=== PATIENT | female | born 1985 | race Caucasian/White ===

== ENCOUNTER 2017-02-04 17:00 | Emergency (ER) | payer BC ==
[~2017-02-04 17:00] MED LIST: CYCL5TAB PO; HYDR-971 PO; NITR100C62 PO
--- NOTE | 2017-02-04 18:03 | RAD ---
CT ABDOMEN PELVIS WO CONTRAST dated 02/04/2017 5:34 PM Indication: Pain, hematuriaHX renal stones, pain right flank X 24 hrs, gross hematuria, UTI. No prior imaging to compare. Comparison: No comparison is available. Technique: Contiguous axial imaging of the abdomen and pelvis performed without the administration of IV or oral contrast. One or more of the following individualized dose reduction techniques were utilized for this examination: 1. Automated exposure control 2. Adjustment of the mA and/or kV according to patient size 3. Use of iterative reconstruction technique Findings: Limited images of lung bases are clear. Heart size within normal limits. No pleural or pericardial effusion. Solid abdominal viscera not well evaluated in the absence of contrast material. No apparent attenuation abnormality of the liver or spleen. Pancreas, adrenal glands unremarkable. The gallbladder surgically absent. There is a 10 mm calcific stone at the right renal pelvis with inflammatory stranding in the perinephric fat. No significant hydronephrosis. No definite calculus of the bilateral ureter. No left renal stone or left hydronephrosis. Unopacified GI tract normal in caliber and contour. No focal bowel wall thickening. No inflammatory stranding in the mesentery. The appendix is not clearly identified. No ascites or lymphadenopathy. Images of pelvis show nondistended urinary bladder. Uterus and adnexa are unremarkable. Suspected 3.2 cm right ovarian cyst. No free pelvic fluid or pelvic lymphadenopathy. Bone windows show no acute finding. Multilevel spondylosis. IMPRESSION: 10 mm calcific stone at the right renal pelvis with mild inflammatory changes in the perinephric fat. No significant hydronephrosis. Small right ovary and cyst. Status post cholecystectomy. Electronically signed by: Xu Mariano MD (02/04/2017 5:59 PM) [facility]
[2017-02-04] MEDS ORDERED: KETOROLAC 30 MG/ML VIAL. ONE (19:21)
[2017-02-04] MEDS ORDERED: KETOROLAC 30 MG/ML VIAL. IM ONE (19:30)
[2017-02-04 20:24] LABS: BACTERIA,URINE FEW /HPF (0-FEW); BILIRUBIN,URINE NEG (NEG); CLARITY,URINE CLOUDY; COLOR,URINE YELLOW; GLUCOSE,URINE NEG (NEG); NITRITE,URINE POS (NEG); RBC,URINE 20-40 /HPF (0-2); UROBILINOGEN,URINE 0.2 mg/dL (0.2 mg/dL); WBC,URINE TNTC /HPF (0-4)
[2017-02-04 20:25] LABS: SQUAMOUS EPITHELIAL CELL,UR FEW /LPF
[2017-02-04 20:46] LABS: CREATININE 0.7 mg/dL (0.6-1.0); GFR 98.3; POTASSIUM 4.2 mmol/L (3.5-5.1)
[2017-02-04 20:54] VITALS: BP 135/83
[2017-02-04] MEDS ORDERED: CEPH-264 PO (21:10)
--- NOTE | 2017-02-04 21:10 | PHYS DOC ---
Past History Past Medical History: Arthritis, Depression, Kidney Stones, Other Past Surgical History: Appendectomy, Cholecystectomy, Tonsillectomy, Tubal ligation, Other Alcohol Use: Occasionally Drug Use: None Adult General Chief Complaint Chief Complaint: FLANK PAIN HPI HPI 31-year-old female with a history of prior kidney stone now complaining of right flank pain gradual onset with dysuria for several days. Patient saw another doctor earlier today and was diagnosed with a UTI. Treatment was initiated with Bactrim. Patient now presents to the emergency department because she think she not have an infection but instead has a kidney stone. No fevers chills sweats or shaking chills. No vomiting or diarrhea. Denies abdominal pain Review of Systems Review of Systems Constitutional: Denies fever or chills [] Eyes: Denies change in visual acuity, redness, or eye pain [] HENT: Denies nasal congestion or sore throat [] Respiratory: Denies cough or shortness of breath [] Cardiovascular: No additional information not addressed in HPI [] GI: Denies abdominal pain, nausea, vomiting, bloody stools or diarrhea [] : Denies dysuria or hematuria [] Musculoskeletal: Denies back pain or joint pain [] Integument: Denies rash or skin lesions [] Neurologic: Denies headache, focal weakness or sensory changes [] Endocrine: Denies polyuria or polydipsia [] All other systems were reviewed and found to be within normal limits, except as documented in this note. Current Medications Current Medications Current Medications Medications (Trade) Dose Ordered Sig/Rodriguez Start Time Stop Time Status Last Admin Dose Admin Ketorolac Tromethamine (Toradol) 30 mg STK-MED ONCE 02/04/17 19:21 02/04/17 19:22 DC Allergies Allergies Allergies Coded Allergies Type Severity Reaction Last Updated Verified No Known Drug Allergies 05/05/16 No Physical Exam Physical Exam Well Appearing patient no acute distress. Minimal right CVA tenderness. Benign abdomen and pelvis. No clinical fever. Vital signs unremarkable Constitutional: Well developed, well nourished, no acute distress, non-toxic appearance. [] HENT: Normocephalic, atraumatic, bilateral external ears normal, oropharynx moist, no oral exudates, nose normal. [] Eyes: PERRLA, EOMI, conjunctiva normal, no discharge. [] Neck: Normal range of motion, no tenderness, supple, no stridor. [] Cardiovascular:Heart rate regular rhythm, no murmur [] Lungs & Thorax: Bilateral breath sounds clear to auscultation [] Abdomen: Bowel sounds normal, soft, no tenderness, no masses, no pulsatile masses. [] Skin: Warm, dry, no erythema, no rash. [] Back: Right CVAT as above Extremities: No tenderness, no cyanosis, no clubbing, ROM intact, no edema. [] Neurologic: Alert and oriented X 3, normal motor function, normal sensory function, no focal deficits noted. [] Psychologic: Affect normal, judgement normal, mood normal. [] Current Patient Data Vital Signs Vital Signs Date Time Temp Pulse Resp B/P (MAP) Pulse Ox O2 Delivery O2 Flow Rate FiO2 02/04/17 20:54 98.5 76 20 135/83 (100) 99 02/04/17 17:00 Room Air Lab Results Laboratory Tests Test 02/04/17 18:45 02/04/17 19:46 Sodium Level 139 mmol/L (136-145) Potassium Level 4.2 mmol/L (3.5-5.1) Chloride Level 103 mmol/L (98-107) Carbon Dioxide Level 27 mmol/L (21-32) Anion Gap 9 (6-14) Blood Urea Nitrogen 14 mg/dL (7-20) Creatinine 0.7 mg/dL (0.6-1.0) Estimated GFR (Cockcroft-Gault) 98.3 Glucose Level 95 mg/dL (70-99) Calcium Level 9.0 mg/dL (8.5-10.1) Urine Collection Type U cath Urine Color Yellow Urine Clarity Cloudy Urine pH 5.5 Urine Specific Central >=1.030 Urine Protein >100 mg/dl (NEG-TRACE) Urine Glucose (UA) Neg mg/dL (NEG) Urine Ketones (Stick) Neg mg/dL (NEG) Urine Blood Large (NEG) Urine Nitrite Pos (NEG) Urine Bilirubin Neg (NEG) Urine Urobilinogen Dipstick 0.2 mg/dL (0.2 mg/dL) Urine Leukocyte Esterase Mod (NEG) Urine RBC 20-40 /HPF (0-2) Urine WBC Tntc /HPF (0-4) Urine Squamous Epithelial Cells Few /LPF Urine Bacteria Few /HPF (0-FEW) Urine Mucus Mod /LPF EKG EKG [] Radiology/Procedures Radiology/Procedures [] Course & Med Decision Making Course & Med Decision Making Pertinent Labs and Imaging studies reviewed. (See chart for details) Signs and symptoms consistent with pyelonephritis confirmed by straight catheter UA. Initial UA was contaminated. Straight catheter sample clearly consistent with infection. CT with 10 mm stone in the right renal pelvis but no evidence of obstruction with no hydro-. Perinephric stranding consistent with pyelonephritis. Patient has benign appearance and clinical presentation. She appears to be very comfortable during her ED visit however she's made many request for narcotics. Given resistance to patient's initial prescription of Bactrim, Rocephin given IM and Keflex dispensed. Patient aware to follow up with primary care doctor for reevaluation and referral to urology to discuss her renal pelvis stone. She is weren't critical importance to return immediately or go to the nurse emergency department if she has worsening signs of systemic illness. No further workup or treatment indicated this time patient agrees with outpatient follow-up and strict return precautions given [] Dragon Disclaimer Dragon Disclaimer This electronic medical record was generated, in whole or in part, using a voice recognition dictation system. Departure Departure: Impression: Primary Impression: Pyelonephritis Additional Impression: Renal lithiasis Disposition: HOME, SELF-CARE Condition: GOOD Referrals: ROBERT PAPPAS MD (PCP) Patient Instructions: Kidney Stones, Pyelonephritis, Adult Additional Instructions: Your urinalysis results right flank pain and CAT scan suggest that you have a kidney infection which is called pyelonephritis. You do have a 10 mm stone in the collecting system of your right kidney however it does not appear to be causing an obstruction. Finish antibiotics as prescribed. Take Pyridium as prescribed 3 times a day for 6 doses. Pyridium will help with your discomfort with urination. Drink plenty of fluids and follow-up with your doctor in 1-2 days for reevaluation and referral to urology to discuss and arrange treatment of your right kidney stone as needed. Return immediately for fevers and for any signs of worsening illness Scripts Phenazopyridine Hcl (PYRIDIUM) 200 Mg Tablet 200 MG PO TID for 2 Days, #6 TAB Prov: RAYMOND GOODRICH MD 02/04/17 Cephalexin (KEFLEX) 500 Mg Capsule 500 MG PO QID for 14 Days, #56 CAP Prov: RAYMOND GOODRICH MD 02/04/17 Problem Qualifiers RAYMOND GOORDICH MD Feb 04, 2017 21:10
[2017-02-04] MEDS ORDERED: PHEN-318 PO (21:13)
[2017-02-04] MEDS ORDERED: cefTRIAXone IM 1 GM VIAL IM ONE (21:15)
[2017-02-04] MEDS ORDERED: HYDROcodone/APAP 5/325MG 1 TAB TABLET PO ONE (21:15)
== END 2017-02-04 21:30 | disposition home or self-care (01) ==
LOC: ER 17:00
DX: N12 Tubulo-interstitial nephritis, not specified as acute or chronic (principal); N20.0 Calculus of kidney; Z87.442 Personal history of urinary calculi; M19.90 Unspecified osteoarthritis, unspecified site; Z90.49 Acquired absence of other specified parts of digestive tract; Z98.51 Tubal ligation status
CPT/HCPCS: 36415; 74176; 80048; 81001; 87086; 96372; 99285; J0696; J1885

== ENCOUNTER 2018-03-28 17:33 | Emergency (ER) | payer BC ==
[~2018-03-28] VITALS: Ht 182.9 cm; Wt 104.3 kg
[~2018-03-28 17:33] MED LIST changes: +CEPH-264 PO; +HYDR-3165 PO; -HYDR-971 PO; +PHEN-318 PO
[2018-03-28 17:45] VITALS: BP 159/111
[2018-03-28] MEDS ORDERED: ORPHENADRINE CITRATE 60 MG/2 ML VIAL. ONE (17:55)
[2018-03-28] MEDS ORDERED: KETOROLAC 60 MG/2 ML VIAL. IM ONE ×2 (17:55→18:00)
[2018-03-28] MEDS ORDERED: CYCL-331 PO (17:57)
[2018-03-28] MEDS ORDERED: NAPR-683 PO (17:57)
[2018-03-28] MEDS ORDERED: HYDR-3165 PO (17:57)
--- NOTE | 2018-03-28 17:57 | PHYS DOC ---
Past History Past Medical History: Arthritis, Depression, Kidney Stones, Other Past Surgical History: Appendectomy, Cholecystectomy, Tonsillectomy, Tubal ligation, Other Alcohol Use: Occasionally Drug Use: None Adult General Chief Complaint Chief Complaint: BACK PAIN OR INJURY HPI HPI Patient is a 32 year old female who presents with complaining of back pain. Patient states she had deep massage for the first time 2 days ago and since yesterday had pain in thoracic and lumbar and sacral area as a constant pain that getting worse with movement. Patient denies focal neuro deficit, fever and chills, urinary and bowel incontinence, history of the same pain. She rated her pain 10 over 10. Review of Systems Review of Systems Constitutional: Denies fever or chills [] Eyes: Denies change in visual acuity, redness, or eye pain [] HENT: Denies nasal congestion or sore throat [] Respiratory: Denies cough or shortness of breath [] Cardiovascular: No additional information not addressed in HPI [] GI: Denies abdominal pain, nausea, vomiting, bloody stools or diarrhea [] : Denies dysuria or hematuria [] Musculoskeletal: Reports back pain[] Integument: Denies rash or skin lesions [] Neurologic: Denies headache, focal weakness or sensory changes [] Endocrine: Denies polyuria or polydipsia [] All other systems were reviewed and found to be within normal limits, except as documented in this note. Current Medications Current Medications Current Medications Medications (Trade) Dose Ordered Sig/Rodriguez Start Time Stop Time Status Last Admin Dose Admin Ketorolac Tromethamine (Toradol Im) 60 mg 1X ONCE 03/28/18 18:00 03/28/18 18:01 UNV Orphenadrine Citrate (Norflex) 60 mg 1X ONCE 03/28/18 18:00 03/28/18 18:01 UNV Allergies Allergies Allergies Coded Allergies Type Severity Reaction Last Updated Verified No Known Drug Allergies 05/05/16 No Physical Exam Physical Exam Constitutional: Well developed, well nourished, mild distress, non-toxic appearance, height 5 '11'', weight 230 lb. [] HENT: Normocephalic, atraumatic. Eyes: PERRLA, EOMI, conjunctiva normal, no discharge. [] Neck: Normal range of motion, no tenderness, supple, no stridor. [] Cardiovascular:Heart rate regular rhythm, no murmur [] Lungs & Thorax: Bilateral breath sounds clear to auscultation [] Abdomen: Bowel sounds normal, soft, no tenderness, no masses, no pulsatile masses. [] Skin: Warm, dry, no erythema, no rash. [] Back: No midline tenderness, painful range of motion, muscle tenderness without ecchymosis or contusion. Extremities: No tenderness, no cyanosis, no clubbing, ROM intact, no edema. [] Neurologic: Alert and oriented X 3, normal motor function, normal sensory function, no focal deficits noted. [] Psychologic: Affect normal, judgement normal, mood normal. [] Current Patient Data Vital Signs Vital Signs Date Time Temp Pulse Resp B/P (MAP) Pulse Ox O2 Delivery O2 Flow Rate FiO2 03/28/18 17:45 Room Air 03/28/18 17:45 98.5 87 20 100 EKG EKG [] Radiology/Procedures Radiology/Procedures [] Course & Med Decision Making Course & Med Decision Making discharge: I've spoken with the patient and/or caregivers. I've explained the patient's condition, diagnosis and treatment plan based on information available to me at this time. I've answered the patient's and/or caregivers questions and addressed any concerns. The patient and/or caregivers have a good understanding the patient's diagnosis, condition and treatment plan as can be expected at this point. Vital signs have been stabilized. The patient's condition is stable for discharge from the emergency department. The patient will pursue further outpatient evaluation with her primary care provider or other designated consulting physician as outlined in the discharge instructions. Patient and/or caregivers are agreeable to this plan of care and follow-up instructions have been explained in detail. The patient and/or caregivers have received these instructions in written format and expressed understanding of these discharge instructions. The patient and her caregivers are aware that if any significant change in condition or worsening of symptoms should prompt him to immediately return to this of the closest emergency department. If an emergent department is not readily available I would encourage him to call 911. [] Dragon Disclaimer Dragon Disclaimer This electronic medical record was generated, in whole or in part, using a voice recognition dictation system. Departure Departure: Impression: Primary Impression: Musculoskeletal strain Disposition: HOME, SELF-CARE (at 1800) Condition: IMPROVED Referrals: ROBERT PAPPAS MD (PCP) Patient Instructions: Muscle Strain Additional Instructions: Apply ice on your back Drink plenty of liquids Follow-up with your primary care physician in 3-5 days Return to ER if not getting better Scripts Hydrocodone Bit/Acetaminophen (NORCO 5-325 TABLET) 1 Each Tablet 1 TAB PO PRN Q6HRS PRN for PAIN, #10 TAB 0 Refills Prov: DAREN MCMILLAN MD 03/28/18 Naproxen (NAPROSYN) 500 Mg Tablet 500 MG PO BID for pain, #20 TAB Prov: DAREN MCMILLAN MD 03/28/18 Cyclobenzaprine Hcl (CYCLOBENZAPRINE HCL) 10 Mg Tablet 1 TAB PO TID for pain, #30 TAB Prov: DAREN MCMILLAN MD 03/28/18 DAREN MCMILLAN MD Mar 28, 2018 17:57
[2018-03-28] MEDS ORDERED: ORPHENADRINE CITRATE 60 MG/2 ML VIAL. IM ONE (18:00)
== END 2018-03-28 18:10 | disposition home or self-care (01) ==
LOC: ER 17:33
DX: S39.012A Strain of muscle, fascia and tendon of lower back, initial encounter (principal); S29.012A Strain of muscle and tendon of back wall of thorax, initial encounter; F41.9 Anxiety disorder, unspecified; F32.9 Major depressive disorder, single episode, unspecified; Z87.442 Personal history of urinary calculi; Z90.49 Acquired absence of other specified parts of digestive tract; Z90.89 Acquired absence of other organs; Z98.51 Tubal ligation status; X58.XXXA Exposure to other specified factors, initial encounter; Y93.89 Activity, other specified; Y92.89 Other specified places as the place of occurrence of the external cause; Y99.8 Other external cause status
CPT/HCPCS: 96372; 99283; J1885; J2360

== ENCOUNTER 2018-05-09 11:01 | Emergency (ER) | payer BC ==
[~2018-05-09] VITALS: Ht 182.9 cm; Wt 122.1 kg
[~2018-05-09 11:01] MED LIST changes: +CYCL-331 PO; +NAPR-683 PO
[2018-05-09 11:11] VITALS: BP 112/52
[2018-05-09] MEDS ORDERED: MECLIZINE 12.5 MG TABLET. PO PRN (11:30)
[2018-05-09] MEDS ORDERED: IV NORMAL SALINE 1,000ML 1,000 ML IV ONE (11:30)
[2018-05-09 11:35] LABS: BASO # 0.1 x10^3/uL (0.0-0.2); BASO % 1 % (0-3); EOS # 0.3 x10^3/uL (0.0-0.7); EOS % 4 % (0-3); HEMATOCRIT 37.7 % (36.0-47.0); HEMOGLOBIN 12.6 g/dL (12.0-15.5); LYMPH # 2.5 x10^3/uL (1.0-4.8); LYMPH % 31 % (24-48); MEAN CORPUSCULAR HEMOGLOBIN 31 pg (25-35); MEAN CORPUSCULAR HGB CONC 34 g/dL (31-37); MEAN CORPUSCULAR VOLUME 93 fL (79-100); MONO # 0.6 x10^3/uL (0.0-1.1); MONO % 7 % (0-9); NEUT # 4.5 x10^3uL (1.8-7.7); NEUT % 56 % (31-73); PLATELET COUNT 309 x10^3/uL (140-400); RED BLOOD COUNT 4.05 x10^6/uL (3.50-5.40); RED CELL DISTRIBUTION WIDTH 12.9 % (11.5-14.5)
--- NOTE | 2018-05-09 11:49 | RAD ---
CT HEAD INDICATION: dizziness x 1 day, lmp -2018, pt shielded, hx of taking diet pills for weight loss COMPARISON: None Available. Exposure: One or more of the following individualized dose reduction techniques were utilized for this examination: 1. Automated exposure control 2. Adjustment of the mA and/or kV according to patient size 3. Use of iterative reconstruction technique TECHNIQUE: 5 mm contiguous axial images were obtained from the skull base to the vertex in both bone and soft tissue algorithm. FINDINGS: No abnormal attenuation within the brain parenchyma. No evidence of acute intracranial hemorrhage. No extra-axial fluid collections. No mass effect or midline shift. Ventricular size is appropriate. Basal cisterns are patent. No fractures identified.Pappas-white differentiation is preserved.Globes and orbits are within normal limits. Mild mucosal thickening bilateral maxillary and sphenoid sinus. IMPRESSION: 1. No acute intracranial findings. 2. Sinus disease. Electronically signed by: Isaias Still MD (05/09/2018 11:46 AM) [facility]
[2018-05-09 11:50] LABS: ALBUMIN 3.9 g/dL (3.4-5.0); ALBUMIN/GLOBULIN RATIO 1.3 (1.0-1.7); CALCIUM 8.6 mg/dL (8.5-10.1); CREATININE 0.8 mg/dL (0.6-1.0); GFR 83.7; MAGNESIUM 1.9 mg/dL (1.8-2.4); POTASSIUM 3.9 mmol/L (3.5-5.1); TOTAL BILIRUBIN 0.3 mg/dL (0.2-1.0); TOTAL PROTEIN 6.9 g/dL (6.4-8.2)
--- NOTE | 2018-05-09 11:57 | RAD ---
Chest, PA and Lateral: Technique: PA and lateral views of the chest were obtained. History: Chest pain. Comparison: None. Findings: The heart and pulmonary vasculature appear within normal limits. The lungs are clear. The pleural margins are clear. Impression: No acute chest process is seen. Electronically signed by: Isaias Still MD (05/09/2018 11:54 AM) [facility]
--- NOTE | 2018-05-09 12:25 | PHYS DOC ---
Past History Past Medical History: Hypothyroid Past Surgical History: Appendectomy, Cholecystectomy, Tonsillectomy, Tubal ligation, Other Alcohol Use: None Drug Use: None Adult General Chief Complaint Chief Complaint: DIZZY/LIGHT HEADED HPI HPI Patient is a 32 year old female who presents with complaining of dizziness. Patient states she start to exercise at 5 AM and was on treadmill about 40-50 minutes. Patient states he was on her bed and jumped from her bed to close the door and felt dizzy and lightheadedness with tinnitus and almost had near syncope because of dizziness. Patient denies focal neuro deficit, is pain, palpitation, nausea vomiting, blurred vision. Patient states her dizziness did not resolve with rest. Patient currently taking diet medication. Review of Systems Review of Systems Constitutional: Denies fever or chills [] Eyes: Denies change in visual acuity, redness, or eye pain [] HENT: Denies nasal congestion or sore throat [] Respiratory: Denies cough or shortness of breath [] Cardiovascular: No additional information not addressed in HPI [] GI: Denies abdominal pain, nausea, vomiting, bloody stools or diarrhea [] : Denies dysuria or hematuria [] Musculoskeletal: Denies back pain or joint pain [] Integument: Denies rash or skin lesions [] Neurologic: Denies headache, focal weakness or sensory changes , reports dizziness[] Endocrine: Denies polyuria or polydipsia [] All other systems were reviewed and found to be within normal limits, except as documented in this note. Current Medications Current Medications Current Medications Medications (Trade) Dose Ordered Sig/Rodriguez Start Time Stop Time Status Last Admin Dose Admin Meclizine HCl (Antivert) 25 mg PRN Q6HRS PRN 05/09/18 11:30 05/09/18 11:42 25 MG Sodium Chloride 1,000 ml @ 1,000 mls/hr 1X ONCE 05/09/18 11:30 05/09/18 12:29 05/09/18 11:42 1,000 MLS/HR Allergies Allergies Allergies Coded Allergies Type Severity Reaction Last Updated Verified No Known Drug Allergies 05/09/18 No Physical Exam Physical Exam Constitutional: Well developed, well nourished, mild acute distress, non-toxic appearance. [] HENT: Normocephalic, atraumatic, bilateral external ears normal, oropharynx moist, no oral exudates, nose normal. [] Eyes: PERRLA, EOMI, conjunctiva normal, no discharge. [] Neck: Normal range of motion, no tenderness, supple, no stridor. [] Cardiovascular:Heart rate regular rhythm, no murmur [] Lungs & Thorax: Bilateral breath sounds clear to auscultation [] Abdomen: Bowel sounds normal, soft, no tenderness, no masses, no pulsatile masses. [] Skin: Warm, dry, no erythema, no rash. [] Back: No tenderness, no CVA tenderness. [] Extremities: No tenderness, no cyanosis, no clubbing, ROM intact, no edema. [] Neurologic: Alert and oriented X 3, normal motor function, normal sensory function, no focal deficits noted. [] Psychologic: Affect normal, judgement normal, mood normal. [] Current Patient Data Vital Signs Vital Signs Date Time Temp Pulse Resp B/P (MAP) Pulse Ox O2 Delivery O2 Flow Rate FiO2 05/09/18 11:11 97.9 79 22 98 Room Air Lab Results Laboratory Tests Test 05/09/18 11:18 05/09/18 11:21 White Blood Count 8.0 x10^3/uL (4.0-11.0) Red Blood Count 4.05 x10^6/uL (3.50-5.40) Hemoglobin 12.6 g/dL (12.0-15.5) Hematocrit 37.7 % (36.0-47.0) Mean Corpuscular Volume 93 fL (79-100) Mean Corpuscular Hemoglobin 31 pg (25-35) Mean Corpuscular Hemoglobin Concent 34 g/dL (31-37) Red Cell Distribution Width 12.9 % (11.5-14.5) Platelet Count 309 x10^3/uL (140-400) Neutrophils (%) (Auto) 56 % (31-73) Lymphocytes (%) (Auto) 31 % (24-48) Monocytes (%) (Auto) 7 % (0-9) Eosinophils (%) (Auto) 4 % (0-3) H Basophils (%) (Auto) 1 % (0-3) Neutrophils # (Auto) 4.5 x10^3uL (1.8-7.7) Lymphocytes # (Auto) 2.5 x10^3/uL (1.0-4.8) Monocytes # (Auto) 0.6 x10^3/uL (0.0-1.1) Eosinophils # (Auto) 0.3 x10^3/uL (0.0-0.7) Basophils # (Auto) 0.1 x10^3/uL (0.0-0.2) Sodium Level 141 mmol/L (136-145) Potassium Level 3.9 mmol/L (3.5-5.1) Chloride Level 105 mmol/L (98-107) Carbon Dioxide Level 26 mmol/L (21-32) Anion Gap 10 (6-14) Blood Urea Nitrogen 14 mg/dL (7-20) Creatinine 0.8 mg/dL (0.6-1.0) Estimated GFR (Cockcroft-Gault) 83.7 BUN/Creatinine Ratio 18 (6-20) Glucose Level 91 mg/dL (70-99) Calcium Level 8.6 mg/dL (8.5-10.1) Magnesium Level 1.9 mg/dL (1.8-2.4) Total Bilirubin 0.3 mg/dL (0.2-1.0) Aspartate Amino Transferase (AST) 14 U/L (15-37) L Alanine Aminotransferase (ALT) 25 U/L (14-59) Alkaline Phosphatase 55 U/L (46-116) Troponin I Quantitative < 0.017 ng/mL (0-0.055) Total Protein 6.9 g/dL (6.4-8.2) Albumin 3.9 g/dL (3.4-5.0) Albumin/Globulin Ratio 1.3 (1.0-1.7) Lipase 173 U/L (73-393) Glucose (Fingerstick) 89 mg/dL (70-99) EKG EKG G interpreted by me. EKG at 1150 showed normal sinus rhythm at rate of 75, normal IA and QT intervals. No acute ST and T-wave abnormalities. Radiology/Procedures Radiology/Procedures [address] [address] IMAGING REPORT Signed PATIENT: DEYA BARAHONA ACCOUNT: [id number] : 1985 LOCATION: ER AGE: 32 SEX: F EXAM STATUS: REG ER ORD. PHYSICIAN: DAREN MCMILLAN MD REASON: dizziness PROCEDURE: CHEST PA & LATERAL Chest, PA and Lateral: Technique: PA and lateral views of the chest were obtained. History: Chest pain. Comparison: None. Findings: The heart and pulmonary vasculature appear within normal limits. The lungs are clear. The pleural margins are clear. Impression: No acute chest process is seen. Electronically signed by: Isaias Still MD (05/09/2018 11:54 AM) [facility] DICTATED AND SIGNED BY: ISAIAS STILL MD DATE: 05/09/18 2935 CC: DAREN MCMILLAN MD; ROBERT PAPPAS MD ~ [place] [address] IMAGING REPORT Signed PATIENT: DEYA BARAHONA ACCOUNT: [id number] : 1985 LOCATION: ER AGE: 32 SEX: F EXAM STATUS: REG ER ORD. PHYSICIAN: DAREN MCMILLAN MD REASON: dizziness PROCEDURE: CT HEAD WO CONTRAST CT HEAD INDICATION: dizziness x 1 day, lmp , pt shielded, hx of taking diet pills for weight loss COMPARISON: None Available. Exposure: One or more of the following individualized dose reduction techniques were utilized for this examination: 1. Automated exposure control 2. Adjustment of the mA and/or kV according to patient size 3. Use of iterative reconstruction technique TECHNIQUE: 5 mm contiguous axial images were obtained from the skull base to the vertex in both bone and soft tissue algorithm. FINDINGS: No abnormal attenuation within the brain parenchyma. No evidence of acute intracranial hemorrhage. No extra-axial fluid collections. No mass effect or midline shift. Ventricular size is appropriate. Basal cisterns are patent. No fractures identified.Pappas-white differentiation is preserved.Globes and orbits are within normal limits. Mild mucosal thickening bilateral maxillary and sphenoid sinus. IMPRESSION: 1. No acute intracranial findings. 2. Sinus disease. Electronically signed by: Isaias Still MD (05/09/2018 11:46 AM) [facility] DICTATED AND SIGNED BY: ISAIAS STILL MD DATE: 05/09/18 1145 CC: DAREN MCMILLAN MD; ROBERT PAPPAS MD ~ Course & Med Decision Making Course & Med Decision Making Pertinent Labs and Imaging studies reviewed. (See chart for details) Evaluation of patient in ER showed 32-year-old female patient with complaining of sudden onset of dizziness after suddenly got out of the bed. Patient had unremarkable physical exam and treated with IV fluid and meclizine with improvement of her condition. Plan to discharge patient home with diagnose of dizziness and marked dehydration and instruction to increase fluid intake. Dragon Disclaimer Dragon Disclaimer This electronic medical record was generated, in whole or in part, using a voice recognition dictation system. Departure Departure: Impression: Primary Impression: Dizziness Additional Impression: Dehydration Disposition: 01 HOME, SELF-CARE (at 1256) Condition: IMPROVED Referrals: ROBERT PAPPAS MD (PCP) Patient Instructions: Dehydration, Adult, Dizziness Additional Instructions: Drink plenty of liquids Follow-up with your primary care physician in 3-5 days Return to ER if not getting better Scripts Meclizine Hcl (MECLIZINE HCL) 25 Mg Tablet 1 TAB PO PRN TID for dizziness, #30 TAB Prov: DAREN MCMILLAN MD 05/09/18 Problem Qualifiers DAREN MCMILLAN MD May 09, 2018 12:25
[2018-05-09 12:32] LABS: BILIRUBIN,URINE NEG (NEG); CLARITY,URINE CLOUDY; COLOR,URINE YELLOW; GLUCOSE,URINE NEG (NEG)
[2018-05-09 12:33] LABS: BACTERIA,URINE FEW /HPF (0-FEW); NITRITE,URINE NEG (NEG); RBC,URINE OCC /HPF (0-2); SQUAMOUS EPITHELIAL CELL,UR MANY /LPF; UROBILINOGEN,URINE 0.2 mg/dL (0.2 mg/dL)
[2018-05-09 12:43] LABS: AMPHETAMINE/METHAMPHETAMINE NEG (NEG); BARBITURATES NEG (NEG); BENZODIAZEPINES NEG (NEG); CANNABINOIDS NEG (NEG); COCAINE NEG (NEG); METHADONE NEG (NEG); OPIATES NEG (NEG); PHENCYCLIDINE NEG (NEG)
[2018-05-09] MEDS ORDERED: MECL25TA3 PO (12:57)
--- NOTE | 2018-05-09 18:08 | EKG ---
[address] [address] Test Date: 2018-05-09 Test Time: 11:15:07 Pat Name: DEYA BARAHONA Department: Room: Gender: F Direct Sales Consultant: JADEN : 1985 Requested By: DAREN MCMILLAN Order Number: [id number] Reading MD: Jose Son Measurements Intervals [place] Rate: 75 P: 56 GA: 146 QRS: 54 QRSD: 100 T: 56 QT: 408 QTc: 458 Interpretive Statements SINUS RHYTHM Electronically Signed On 05-13-2018 8:54:05 MICROFILMER by Jose Son
== END 2018-05-09 13:15 | disposition home or self-care (01) ==
LOC: ER 11:01
DX: E86.0 Dehydration (principal); R42 Dizziness and giddiness; E03.9 Hypothyroidism, unspecified
CPT/HCPCS: 36415; 70450; 71046; 80053; 80307; 81001; 82947; 83690; 83735; 84484; 85025; 93005; 96360; 99284; J8597; J7030

== ENCOUNTER 2018-07-20 20:03 | Emergency (ER) | payer BC ==
[~2018-07-20] VITALS: Ht 182.9 cm; Wt 108.9 kg
[~2018-07-20 20:03] MED LIST changes: +MECL25TA3 PO
--- NOTE | 2018-07-20 20:08 | ED.ADGEN ---
Past History Past Medical History: Hypothyroid Past Surgical History: Appendectomy, Cholecystectomy, Tonsillectomy, Tubal ligation, Other Alcohol Use: None Drug Use: None Adult General Chief Complaint Chief Complaint "..I fell in the garage yesterday morning... and like hit everything.. but my Lt elbow and shoulder or upper arm still really hurts..." HPI HPI Patient is a 33 year old female who presents with above hx and complaints Lt arm elbow and shoulder injury, bilateral knees and Lt. hip. Pt. has bilateral knee and Lt hip contusions and deep abrasion. Patient states she just tripped. There was no dysrhythmia or loss of consciousness. Patient distal neurovascular intact. Is able to do straight leg lifts and exam. Ambulatory Without problem. Patient's left arm however has marked tenderness of the elbow humerus and left shoulder. Patient has giveaway weakness when held at 90 . Patient does have sensation in deltoid area. She is right-hand dominant. No history immunosuppression. Review of Systems Review of Systems Constitutional: Denies fever or chills [] Eyes: Denies change in visual acuity, redness, or eye pain [] HENT: Denies nasal congestion or sore throat [] Respiratory: Denies cough or shortness of breath [] Cardiovascular: No additional information not addressed in HPI [] GI: Denies abdominal pain, nausea, vomiting, bloody stools or diarrhea [] : Denies dysuria or hematuria [] Musculoskeletal: Plaints of multiple contusions and joint pain [] Integument: Denies rash or skin lesions [] Neurologic: Denies headache, focal weakness or sensory changes [] Endocrine: Denies polyuria or polydipsia [] All other systems were reviewed and found to be within normal limits, except as documented in this note. Family History Family History Noncontributory Current Medications Current Medications Current Medications Medications (Trade) Dose Ordered Sig/Rodriguez Start Time Stop Time Status Last Admin Dose Admin Hydrocodone Bitartrate/ Ibuprofen (Vicoprofen 7.5-200) 2 tab 1X ONCE 07/20/18 21:00 07/20/18 21:01 DC 07/20/18 21:22 2 TAB Allergies Allergies Allergies Coded Allergies Type Severity Reaction Last Updated Verified No Known Drug Allergies 05/09/18 No Physical Exam Physical Exam Constitutional: Moderately acute distress, non-toxic appearance. [] HENT: Normocephalic, atraumatic, bilateral external ears normal, oropharynx moist, no oral exudates, nose normal. [] Eyes: PERRLA, EOMI, conjunctiva normal, no discharge. [] Neck: Normal range of motion, no tenderness, supple, no stridor. [] Old surgery scar Cardiovascular:Heart rate regular rhythm, no murmur [] Lungs & Thorax: Bilateral breath sounds equal at apex on auscultation [] Abdomen: Bowel sounds normal, soft, no tenderness, no masses, no pulsatile masses. [] Old surgery scars. Skin: Warm, dry, no erythema, no rash. Except left hip contusion and abrasion. On contusions lesions both knees. Contusions to left elbow. Back: No tenderness, no CVA tenderness. [] Extremities: Bilateral knee tenderness, left elbow and left shoulder tenderness, no cyanosis, no clubbing, ROM limited in left shoulder and elbow due to pain and edema. [] Neurologic: Alert and oriented X 3, normal motor function, normal sensory function, no focal deficits noted. [] Psychologic: Affect anxious, judgement normal, mood normal. [] Current Patient Data Vital Signs Vital Signs Date Time Temp Pulse Resp B/P (MAP) Pulse Ox O2 Delivery O2 Flow Rate FiO2 07/20/18 21:29 82 16 142/90 (107) 98 Room Air 07/20/18 20:19 98.8 EKG EKG [] Radiology/Procedures Radiology/Procedures My interpretation of left humerus films show areas of edema. CT of the left shoulder and elbow show no obvious displaced fracture. See formal report[] Course & Med Decision Making Course & Med Decision Making Pertinent Labs and Imaging studies reviewed. (See chart for details) Ice packs as needed. Take Tylenol and ibuprofen as needed for pain. Wear sling. Take arm out of sling 4 times a day for passive range of motion. Follow-up primary care. Follow-up orthopedics. [] Final Impression Final Impression 1. Lt. Arm[] contusions and sprain 2. Left shoulder rotator cuff injury 3. Multiple contusions and abrasions Dragon Disclaimer Dragon Disclaimer This electronic medical record was generated, in whole or in part, using a voice recognition dictation system. Discharge Summary Visit Information Final Diagnosis Problems Medical Problems: (1) Multiple contusions Status: Acute (2) Rotator cuff (capsule) sprain Status: Acute Brief Hospital Course Allergies Allergies Coded Allergies Type Severity Reaction Last Updated Verified No Known Drug Allergies 05/09/18 No Vital Signs Vital Signs Date Time Temp Pulse Resp B/P (MAP) Pulse Ox O2 Delivery O2 Flow Rate FiO2 07/20/18 21:29 82 16 142/90 (107) 98 Room Air 07/20/18 20:19 98.8 Brief Hospital Course Ms. Hutchins is a 33 old female who presented with hx fall in her garage. Multiple contusion. Lt. rotator cuff injury. Discharge Information Condition at Discharge: Stable Disposition/Orders: D/C to Home Dischare Medications Current Medications Hydrocodone Bitartrate/ Ibuprofen (Vicoprofen 7.5-200) 2 tab 1X ONCE PO Last administered on 07/20/18at 21:22; Admin Dose 2 TAB; Start 07/20/18 at 21:00; Stop 07/20/18 at 21:01; Status DC Active Scripts Active Hydrocodone-Ibuprofen 7.5-200 (Hydrocodone/Ibuprofen) 1 Each Tablet 1 Tab PO PRN Q6HRS PRN Meclizine Hcl 25 Mg Tablet 1 Tab PO PRN TID [place] 5-325 Tablet (Hydrocodone Bit/Acetaminophen) 1 Each Tablet 1 Tab PO PRN Q6HRS PRN Naprosyn (Naproxen) 500 Mg Tablet 500 Mg PO BID Cyclobenzaprine Hcl 10 Mg Tablet 1 Tab PO TID Pyridium (Phenazopyridine Hcl) 200 Mg Tablet 200 Mg PO TID 2 Days Keflex (Cephalexin) 500 Mg Capsule 500 Mg PO QID 14 Days Macrobid 100 Mg Capsule (Nitrofurantoin Monohyd/M-Cryst) 100 Mg Capsule 1 Cap PO BID [place] 5-325 Tablet (Hydrocodone Bit/Acetaminophen) 1 Each Tablet 1-2 Tab PO PRN Q6HRS PRN Cyclobenzaprine Hcl 5 Mg Tablet 1 Tab PO TID PRN Dragon Disclaimer This chart was dictated in whole or in part using Voice Recognition software in a busy, high-work load, and often noisy Emergency Department environment. It may contain unintended and wholly unrecognized errors or omissions. SHAYE BO MD Jul 20, 2018 20:08
[2018-07-20] MEDS ORDERED: HYDROcodon/IBUPROFEN 7.5/200MG 1 TAB TABLET PO ONE (21:00)
--- NOTE | 2018-07-20 21:13 | RAD ---
HUMERUS LEFT, ELBOW LEFT 3V, SHOULDER 2+V LEFT History: Fall 07/19/17, swelling, pain to left elbow and upper arm. 3 view left shoulder There is a lucency traversing the proximal lateral humerus on the tangential scapular view, probably artifactual. No evidence of other fracture. No dislocation. Two-view left humerus No evidence of acute fracture. The visualized joints appear intact. 3 view left elbow No evidence of acute fracture. Joint spaces appear intact. No significant soft tissue abnormality. There is no evidence of a large joint effusion. IMPRESSION: 1. There is a irregular lucency traversing the lateral humeral head on the tangential scapular view only, likely artifact. Depending on clinical concern, further evaluation could be obtained with MRI or CT. 2. Otherwise, no evidence of acute fracture or dislocation. Electronically signed by: Xu Hyde MD (07/20/2018 9:10 PM) [facility]
[2018-07-20 21:29] VITALS: BP 142/90
--- NOTE | 2018-07-20 22:45 | RAD ---
CT of the left humerus Indication: Fall 07/19/18, left humerus to elbow pain, abnormality on x-ray Exposure: One or more of the following individualized dose reduction techniques were utilized for this examination: 1. Automated exposure control 2. Adjustment of the mA and/or kV according to patient size 3. Use of iterative reconstruction technique. Technique: Standard imaging without intravenous contrast. Imaging was performed through the left humerus. There is no evidence of an acute fracture. No aggressive bone destruction. No evidence of periosteal reaction. The acromioclavicular joint and glenohumeral joints are intact. Images are not orthogonal to the elbow joint but no gross dislocation. No significant soft tissue abnormality. IMPRESSION: No evidence of acute fracture of the left humerus. Electronically signed by: Xu Hyde MD (07/20/2018 10:42 PM) [facility]
[2018-07-20] MEDS ORDERED: HYDR-1179 PO (22:52)
== END 2018-07-20 23:27 | disposition home or self-care (01) ==
LOC: ER 20:03
DX: S43.422A Sprain of left rotator cuff capsule, initial encounter (principal); S80.02XA Contusion of left knee, initial encounter; S80.01XA Contusion of right knee, initial encounter; S50.02XA Contusion of left elbow, initial encounter; S70.02XA Contusion of left hip, initial encounter; E03.9 Hypothyroidism, unspecified; W18.09XA Striking against other object with subsequent fall, initial encounter; Y93.89 Activity, other specified; Y92.59 Other trade areas as the place of occurrence of the external cause; Y99.8 Other external cause status
CPT/HCPCS: 29240; 73030; 73060; 73080; 73200; 99284-25

== ENCOUNTER 2018-08-31 21:47 | Emergency (ER) | payer BC ==
[~2018-08-31] VITALS: Ht 182.9 cm; Wt 99.8 kg
[~2018-08-31 21:47] MED LIST changes: +HYDR-1179 PO
--- NOTE | 2018-08-31 22:31 | ED.ADGEN ---
Past History Past Medical History: Anxiety, Hypothyroid Past Surgical History: Appendectomy, Cholecystectomy, Tonsillectomy, Tubal ligation, Other Alcohol Use: None Drug Use: None Adult General Chief Complaint Chief Complaint ".. I twisted my Rt. foot .. I was working in yard last night.. trying to cut out a castanon... It hurt all day while walking around [employer]...." HPI HPI Patient is a 33 year old female who presents with history of right foot sprain. Distal neurovascular equal to left foot. Patient localizes pain in mid foot. His posterior foot squeeze. No pain with loading of toes. No upper leg tenderness. No ankle tenderness. Patient still has findings of poison jonelle. Patient has excoriated lesion these lesions. Patient is ambulatory. Review of Systems Review of Systems Constitutional: Denies fever or chills [] Eyes: Denies change in visual acuity, redness, or eye pain [] HENT: Denies nasal congestion or sore throat [] Respiratory: Denies cough or shortness of breath [] Cardiovascular: No additional information not addressed in HPI [] GI: Denies abdominal pain, nausea, vomiting, bloody stools or diarrhea [] : Denies dysuria or hematuria [] Musculoskeletal: Denies back pain or joint pain []complains of right foot sprain Integument: Denies rash or skin lesions []still has some residual poison jonelle lesions Neurologic: Denies headache, focal weakness or sensory changes [] Endocrine: Denies polyuria or polydipsia [] All other systems were reviewed and found to be within normal limits, except as documented in this note. Family History Family History Noncontributory Current Medications Current Medications Current Medications Medications (Trade) Dose Ordered Sig/[facility] Start Time Stop Time Status Last Admin Dose Admin Oxycodone/ Acetaminophen (Percocet 5/325) 2 tab 1X ONCE 08/31/18 23:00 08/31/18 23:01 DC 08/31/18 23:42 2 TAB Allergies Allergies Allergies Coded Allergies Type Severity Reaction Last Updated Verified No Known Drug Allergies 05/09/18 No Physical Exam Physical Exam Constitutional: Moderate acute distress, non-toxic appearance. [] HENT: Normocephalic, atraumatic, bilateral external ears normal, oropharynx moist, no oral exudates, nose normal. [] Eyes: PERRLA, EOMI, conjunctiva normal, no discharge. [] Neck: Normal range of motion, no tenderness, supple, no stridor. [] Cardiovascular:Heart rate regular rhythm, no murmur [] Lungs & Thorax: Bilateral breath sounds clear to auscultation [] Abdomen: Bowel sounds normal, soft, no tenderness, no masses, no pulsatile masses. [] Obese. Skin: Warm, dry, no erythema, poison JONELLE rash. [] Back: No tenderness, no CVA tenderness. [] Extremities: No tenderness, no cyanosis, no clubbing, ROM intact, no edema. [] Findings in right foot as per history of present illness Neurologic: Alert and oriented X 3, normal motor function, normal sensory function, no focal deficits noted. [] Psychologic: Affect normal, judgement normal, mood normal. [] EKG EKG [] Radiology/Procedures Radiology/Procedures My interpretation x-ray shows no obvious displaced fracture or dislocation. See formal report when available.[] Course & Med Decision Making Course & Med Decision Making Pertinent Labs and Imaging studies reviewed. (See chart for details) Ice, elevation, Nash wrap, stiff shoe or boot, Tylenol and ibuprofen for pain. Follow-up primary care. Return if any concerns. Re-x-ray in 2 weeks if still painful to evaluate for fracture. [] Final Impression Final Impression 1. Rt foot sprain[] Dragon Disclaimer Dragon Disclaimer This electronic medical record was generated, in whole or in part, using a voice recognition dictation system. Discharge Summary Visit Information Final Diagnosis Problems Medical Problems: (1) Foot sprain Status: Acute Brief Hospital Course Allergies Allergies Coded Allergies Type Severity Reaction Last Updated Verified No Known Drug Allergies 05/09/18 No Brief Hospital Course Ms. Hutchins is a 33 old female who presented with Rt. foot sprain Discharge Information Condition at Discharge: Stable Disposition/Orders: D/C to Home Dischare Medications Current Medications Oxycodone/ Acetaminophen (Percocet 5/325) 2 tab 1X ONCE PO Last administered on 08/31/18at 23:42; Admin Dose 2 TAB; Start 08/31/18 at 23:00; Stop 08/31/18 at 23:01; Status DC Active Scripts Active Hydrocodone-Ibuprofen 7.5-200 (Hydrocodone/Ibuprofen) 1 Each Tablet 1 Tab PO PRN Q6HRS PRN Meclizine Hcl 25 Mg Tablet 1 Tab PO PRN TID [place] 5-325 Tablet (Hydrocodone Bit/Acetaminophen) 1 Each Tablet 1 Tab PO PRN Q6HRS PRN Naprosyn (Naproxen) 500 Mg Tablet 500 Mg PO BID Cyclobenzaprine Hcl 10 Mg Tablet 1 Tab PO TID Pyridium (Phenazopyridine Hcl) 200 Mg Tablet 200 Mg PO TID 2 Days Keflex (Cephalexin) 500 Mg Capsule 500 Mg PO QID 14 Days Macrobid 100 Mg Capsule (Nitrofurantoin Monohyd/M-Cryst) 100 Mg Capsule 1 Cap PO BID [place] 5-325 Tablet (Hydrocodone Bit/Acetaminophen) 1 Each Tablet 1-2 Tab PO PRN Q6HRS PRN Cyclobenzaprine Hcl 5 Mg Tablet 1 Tab PO TID PRN Dragon Disclaimer This chart was dictated in whole or in part using Voice Recognition software in a busy, high-work load, and often noisy Emergency Department environment. It may contain unintended and wholly unrecognized errors or omissions. SHAYE BO MD Aug 31, 2018 22:31
[2018-08-31 22:35] VITALS: BP 156/72
[2018-08-31] MEDS ORDERED: oxyCODONE/APAP 5/325 1 TAB TABLET PO ONE (23:00)
--- NOTE | 2018-08-31 23:19 | RAD ---
FOOT RIGHT 3V History: Twisted right foot on 08/30/2018 with pain and swelling Comparison: None. Findings: 3 views of the right foot are submitted. No acute fracture or dislocation is identified. There is fusion of the fifth distal interphalangeal joint. Impression: 1. No acute osseous abnormality is identified by radiographs. Electronically signed by: Maverick Harrison MD (08/31/2018 11:16 PM) [facility]
== END 2018-09-01 | disposition home or self-care (01) ==
LOC: ER 21:47
DX: S93.601A Unspecified sprain of right foot, initial encounter (principal); F41.9 Anxiety disorder, unspecified; E03.9 Hypothyroidism, unspecified; X50.1XXA Overexertion from prolonged static or awkward postures, initial encounter; Y93.89 Activity, other specified; Y92.096 Garden or yard of other non-institutional residence as the place of occurrence of the external cause; Y99.8 Other external cause status
CPT/HCPCS: 73630; 99284

== ENCOUNTER 2018-11-25 17:44 | Emergency (ER) | payer BC ==
[~2018-11-25] VITALS: Ht 182.9 cm; Wt 116.6 kg
[2018-11-25 17:50] VITALS: BP 143/90
--- NOTE | 2018-11-25 18:15 | PHYS DOC ---
Past History Past Medical History: Anxiety, Hypothyroid, Kidney Stones Past Surgical History: Appendectomy, Cholecystectomy, Tonsillectomy, Tubal ligation, Other Additional Past Surgical Histo: knee, thyroid Smoking: Cigarettes, Less than 1pk/day Alcohol Use: Occasionally Drug Use: None Adult General Chief Complaint Chief Complaint: PAIN ON URINATION HPI HPI Patient is a 33 year old female with dysuria and L flank pain that started yesterday. Increased frequency and urgency. No hematuria. Fever last night at 102 degrees. No n/v/d. Improved with ibuprofen. Symptoms are moderate intensity. [] Review of Systems Review of Systems Constitutional: see HPI[] Eyes: Denies change in visual acuity, redness, or eye pain [] HENT: Denies nasal congestion or sore throat [] Respiratory: Denies cough or shortness of breath [] Cardiovascular: No chest pain or palpitations [] GI: Denies abdominal pain, nausea, vomiting, bloody stools or diarrhea [] : see hpi[] Musculoskeletal: Denies back pain or joint pain [] Integument: Denies rash or skin lesions [] Neurologic: Denies headache, focal weakness or sensory changes [] Endocrine: Denies polyuria or polydipsia [] All other systems were reviewed and found to be within normal limits, except as documented in this note. Allergies Allergies Allergies Coded Allergies Type Severity Reaction Last Updated Verified No Known Drug Allergies 05/09/18 No Physical Exam Physical Exam Constitutional: Well developed, well nourished, no acute distress, non-toxic appearance. [] HENT: Normocephalic, atraumatic, bilateral external ears normal, oropharynx moist, no oral exudates, nose normal. [] Eyes: PERRLA, EOMI, conjunctiva normal, no discharge. [] Neck: Normal range of motion, no tenderness, supple, no stridor. [] Cardiovascular:Heart rate regular rhythm, no murmur [] Lungs & Thorax: Bilateral breath sounds clear to auscultation [] Abdomen: Bowel sounds normal, soft, no tenderness, no masses, no pulsatile masses. [] Skin: Warm, dry, no erythema, no rash. [] Back: No midline tenderness, mild L CVA tenderness, no chandelier sign. [] Extremities: No tenderness, no cyanosis, no clubbing, ROM intact, no edema. [] Neurologic: Alert and oriented X 3, normal motor function, normal sensory function, no focal deficits noted. [] Psychologic: Affect normal, judgement normal, mood normal. [] EKG EKG [] Radiology/Procedures Radiology/Procedures [] Course & Med Decision Making Course & Med Decision Making Pertinent Labs and Imaging studies reviewed. (See chart for details) ED course: Patient arrived, was placed in bed, and tolerated exam well. Findings were discussed with patient who voiced understanding. All questions were answered. She was discharged in improved condition. Medical decision making: Afebrile patient with dysuria and mild right flank pain. There is blood noted in her urine without any nitrite or leukocyte esterase. She does have a history of kidney stones, and in the absence of abnormal vitals at this time we will treat with NSAIDs and allow the stone if it is present to pass. Given her history of the fever and dysuria we'll cover with antibiotics. Do not see any evidence of an infected stone on exam nor inadequate pain management as patient is sitting comfortably. There is no evidence of systemic toxicity at this time.[] Dragon Disclaimer Dragon Disclaimer This electronic medical record was generated, in whole or in part, using a voice recognition dictation system. Departure Departure: Impression: Primary Impression: Urinary tract infection Disposition: ADMITTED INPATIENT Condition: IMPROVED Referrals: MICHAEL NUNEZ APRN (PCP) Follow-up in 2 days Patient Instructions: Urinary Tract Infection Additional Instructions: Drink plenty of fluids. Follow-up with your regular doctor in 2 days. Take the medication as prescribed. Return to the ER if worsening discomfort or any other concerns Scripts Hydrocodone Bit/Acetaminophen ([place] 5-325 TABLET) 1 Each Tablet 1 TAB PO Q4-6HRS for severe pain, #20 TAB Prov: TAYLOR TERRELL DO 11/25/18 Meloxicam (MELOXICAM) 7.5 Mg Tablet 7.5 MG PO DAILY for PAIN, #20 TAB Prov: TAYLOR TERRELL DO 11/25/18 Cephalexin (KEFLEX) 500 Mg Capsule 500 MG PO TID for UTI for 10 Days, #30 CAP Prov: TAYLOR TERRELL DO 11/25/18 Problem Qualifiers Primary Impression: Urinary tract infection Urinary tract infection type: site unspecified Hematuria presence: with hematuria Qualified Codes: N39.0 - Urinary tract infection, site not specified; R31.9 - Hematuria, unspecified TAYLOR TERRELL DO Nov 25, 2018 18:15
[2018-11-25 18:28] LABS: BILIRUBIN,URINE NEG (NEG); CLARITY,URINE CLEAR; COLOR,URINE YELLOW; GLUCOSE,URINE NEG (NEG); NITRITE,URINE NEG (NEG); UROBILINOGEN,URINE 0.2 mg/dL (0.2 mg/dL)
[2018-11-25] MEDS ORDERED: CEPH-264 PO (18:44)
[2018-11-25] MEDS ORDERED: HYDR-3165 PO (18:44)
[2018-11-25] MEDS ORDERED: MELO7.5T29 PO (18:44)
== END 2018-11-25 18:47 | disposition other institution (70) ==
LOC: ER 17:44
DX: N39.0 Urinary tract infection, site not specified (principal); R31.9 Hematuria, unspecified; E03.9 Hypothyroidism, unspecified; F17.210 Nicotine dependence, cigarettes, uncomplicated; Z87.442 Personal history of urinary calculi; Z90.49 Acquired absence of other specified parts of digestive tract; Z90.89 Acquired absence of other organs; Z98.51 Tubal ligation status
CPT/HCPCS: 81003; 81025; 99285

== ENCOUNTER 2019-08-15 20:03 | Emergency (ER) | payer SELFPAY ==
[~2019-08-15] VITALS: Ht 182.9 cm; Wt 103.6 kg
[~2019-08-15 20:03] MED LIST changes: +MECL-75 PO; -MECL25TA3 PO; +MELO7.5T29 PO
--- NOTE | 2019-08-15 20:33 | PHYS DOC ---
Past History Past Medical History: Anxiety, CHF, Hypothyroid, Kidney Stones Past Medical History CHF 2017 Past Surgical History: Appendectomy, Cholecystectomy, Tonsillectomy, Tubal ligation, Other Additional Past Surgical Histo: knee, thyroid Smoking: Cigarettes, Less than 1pk/day Alcohol Use: Occasionally Drug Use: None General Adult HPI: HPI: "... I had.. cough.. .my mom is on hospice,,, she has metastatic breast cancer... And expected to only have maybe 30 days to live.. And I was worried that... I may have gotten COVID,,,, ".. " I just feel like ... I am coming down with something.. I was tired and fell asleep this afternoon.. I took Tylenol about 3pm.. and Ibuprofen at about 6 pm...." " I am just worried.. " Patient is a 34 year old female who presents with above hx and complaints of malaise, fatigue, and and anxiety. Patient denies any specific ill contacts or exposures. Absolutely no known COVID exposures. No travel outside the [facility]. No specific ill contacts other than her mother who is dying of metastatic breast cancer. Patient is under increased stress since her mother is in their home and not expected to live another 30 days. Patient does have past medical history of thyroidectomy and on supplemental thyroxine. Patient does smoke. No history of immunosuppression. No history of coagulopathy or DVTs. Does have remote history of post CHF that cleared. No sequela noted. The pt. follow s with Neela Arenas for care. Review of Systems: Review of Systems: Constitutional: Denies fever or chills Eyes: Denies change in visual acuity HENT: Denies nasal congestion or sore throat Respiratory: Denies cough or shortness of breath Cardiovascular: Denies chest pain or edema GI: Denies abdominal pain, nausea, vomiting, bloody stools or diarrhea : Denies dysuria Musculoskeletal: Denies back pain or joint pain Integument: Denies rash Neurologic: Denies headache, focal weakness or sensory changes Endocrine: Denies polyuria or polydipsia Lymphatic: Denies swollen glands Psychiatric: Denies depression or anxiety Heart Score: HEART Score for Chest Pain: HEART Score for Chest Pain Response (Comments) Value History Slighlty/Non-Suspicious 0 ECG Normal 0 Age < 45 0 Risk Factors 1 or 2 Risk Factors 1 Troponin < Normal Limit 0 Total 1 Risk Factors: Risk Factors: DM, Current or recent (<one month) smoker, HTN, HLP, family history of CAD, obesity. Risk Scores: Score 0 - 3: 2.5% MACE over next 6 weeks - Discharge Home Score 4 - 6: 20.3% MACE over next 6 weeks - Admit for Clinical Observation Score 7 - 10: 72.7% MACE over next 6 weeks - Early Invasive Strategies Family History: Family History: Mother has terminal metastatic breast cancer Current Medications: Current Meds: See nursing for home meds Allergies: Allergies: Allergies Coded Allergies Type Severity Reaction Last Updated Verified No Known Drug Allergies 05/09/18 No Physical Exam: PE: Constitutional: Mild distress, non-toxic appearance. [] HENT: Normocephalic, atraumatic, bilateral external ears normal, oropharynx moist, no oral exudates, nose normal. [] Eyes: PERRLA, EOMI, conjunctiva normal, no discharge. [] Neck: Normal range of motion, no tenderness, supple, no stridor. Thyroidectomy scar Cardiovascular: Bradycardia heart rate regular rhythm, no murmur [] Lungs & Thorax: Bilateral breath sounds equal apex with few scattered wheezes on auscultation [] Abdomen: Bowel sounds normal, soft, no tenderness, no masses, no pulsatile masses. [Obese. Old surgery scars. Skin: Warm, dry, no erythema, no rash. [] Back: No tenderness, no CVA tenderness. [] Extremities: No tenderness, no cyanosis, no clubbing, ROM intact, no edema. [] No cording appreciated a few scattered bruises on her upper thighs. Knee surgery scars. Neurologic: Alert and oriented X 3, normal motor function, normal sensory function, no focal deficits noted. [] Psychologic: Affect anxious , judgement normal, mood normal. [] Current Patient Data: Labs: Laboratory Tests Test 08/15/19 20:17 POC Urine HCG, Qualitative hcg negative (Negative) EKG: EKG: My interpretation EKG shows a sinus bradycardia at 59 bpm. There is some nonspecific T wave changes in lateral leads. No findings of acute STEMI of contralateral changes. [] Radiology/Procedures: Radiology/Procedures: [][address] [address] IMAGING REPORT Signed PATIENT: DEYA BARAHONA AACCOUNT: [id number] : 1985 LOCATION: ER AGE: 34 SEX: F EXAM STATUS: REG ER ORD. PHYSICIAN: SHAYE BO MD REASON: dyspnea PROCEDURE: PORTABLE CHEST 1V EXAM: Chest, single view. HISTORY: Pain. COMPARISON: 05/09/2018 FINDINGS: A frontal view of the chest obtained. There is no infiltrate, pleural effusion or pneumothorax. There is a prominent right cardiac border, stable in appearance. IMPRESSION: No acute pulmonary finding. Electronically signed by: Neela Maguire MD (08/15/2019 10:38 PM) [facility] DICTATED AND SIGNED BY: NEELA MAGUIRE MD DATE: 08/15/192237 CC: SHAYE BO MD; MICHAEL ARENAS APRN ~ Course & Med Decision Making: Course & Med Decision Making Pertinent Labs and Imaging studies reviewed. (See chart for details) Patient follow-up with her primary care. Return if any concerns. Patient use MDI 2 puffs 4 times a day. Patient strongly encouraged to stop smoking. Patient to wear a mask anytime she is out. Patient to make sure mass covers her nose and mouth. Patient to follow-up pending labs patient discuss ED work-up with her primary care. Patient take Tylenol or Profen for discomfort. Impression: 1. Viral syndrome 2. Cough 3. Mild elevation ALT 78 4. Drug screen positive for benzos and opiates 5. Tobacco use 6. Depressed lymphocyte count 23 7. Remote history of CHF 2017 [] Dragon Disclaimer: Dragon Disclaimer: This electronic medical record was generated, in whole or in part, using a voice recognition dictation system. Departure Departure: Disposition: HOME/RESIDENCE PRIOR TO ADM Condition: STABLE Referrals: MICHAEL ARENAS APRN (PCP) Scripts Albuterol Sulfate (VENTOLIN HFA INHALER) 18 Gm Hfa.aer.ad 2 PUFF IH PRN Q4HRS PRN for FOR ASTHMA for 30 Days, INHALER 0 Refills Prov: SHAYE BO MD 08/15/19 Dragon Disclaimer This chart was dictated in whole or in part using Voice Recognition software in a busy, high-work load, and often noisy Emergency Department environment. It may contain unintended and wholly unrecognized errors or omissions. SHAYE BO MD August 15, 2019 20:33
[2019-08-15] MEDS ORDERED: IV RINGERS SOLUTION,LACTATED 1,000 ML IV SCH (20:38)
[2019-08-15 21:11] LABS: BILIRUBIN,URINE NEG (NEG); CLARITY,URINE HAZY; COLOR,URINE AMBER; GLUCOSE,URINE NEG (NEG); NITRITE,URINE NEG (NEG); RBC,URINE OCC /HPF (0-2); UROBILINOGEN,URINE 0.2 mg/dL (0.2 mg/dL); WBC,URINE OCC /HPF (0-4)
[2019-08-15 21:12] LABS: BACTERIA,URINE FEW /HPF (0-FEW); SQUAMOUS EPITHELIAL CELL,UR MANY /LPF
[2019-08-15 21:14] LABS: BARBITURATES NEG (NEG); BENZODIAZEPINES POS (NEG); CANNABINOIDS NEG (NEG); COCAINE NEG (NEG); METHADONE NEG (NEG); OPIATES POS (NEG); PHENCYCLIDINE NEG (NEG)
[2019-08-15 21:19] LABS: BASO # 0.1 x10^3/uL (0.0-0.2); BASO % 1 % (0-3); EOS # 0.1 x10^3/uL (0.0-0.7); EOS % 2 % (0-3); HEMATOCRIT 41.2 % (36.0-47.0); LYMPH # 1.8 x10^3/uL (1.0-4.8); LYMPH % 23 % (24-48); MEAN CORPUSCULAR HEMOGLOBIN 33 pg (25-35); MEAN CORPUSCULAR HGB CONC 34 g/dL (31-37); MEAN CORPUSCULAR VOLUME 96 fL (79-100); MONO # 0.6 x10^3/uL (0.0-1.1); MONO % 8 % (0-9); NEUT # 5.1 x10^3uL (1.8-7.7); NEUT % 67 % (31-73); PLATELET COUNT 282 x10^3/uL (140-400); RED CELL DISTRIBUTION WIDTH 13.3 % (11.5-14.5); WHITE BLOOD COUNT 7.7 x10^3/uL (4.0-11.0)
[2019-08-15 21:23] LABS: AMPHETAMINE/METHAMPHETAMINE NEG (NEG)
[2019-08-15 21:28] LABS: CREATININE 0.9 mg/dL (0.6-1.0); GFR 72.1; POTASSIUM 3.5 mmol/L (3.5-5.1)
[2019-08-15 21:40] LABS: C REACTIVE PROTEIN 2.3 mg/L (0-3.3); DIRECT BILIRUBIN 0.1 mg/dL (0.0-0.2); MAGNESIUM 2.2 mg/dL (1.8-2.4); TOTAL BILIRUBIN 0.3 mg/dL (0.2-1.0); TOTAL PROTEIN 7.6 g/dL (6.4-8.2)
[2019-08-15] MEDS ORDERED: ACETAMINOPHEN 500 MG TABLET PO ONE (22:30)
[2019-08-15 22:40] VITALS: BP 158/82
[2019-08-15 22:41] LABS: INFLUENZA A PATIENT NEGATIVE (NEGATIVE); INFLUENZA B PATIENT NEGATIVE (NEGATIVE)
--- NOTE | 2019-08-15 22:41 | RAD ---
EXAM: Chest, single view. HISTORY: Pain. COMPARISON: 05/09/2018 FINDINGS: A frontal view of the chest obtained. There is no infiltrate, pleural effusion or pneumothorax. There is a prominent right cardiac border, stable in appearance. IMPRESSION: No acute pulmonary finding. Electronically signed by: Neela Wei MD (08/15/2019 10:38 PM) [facility]
[2019-08-15] MEDS ORDERED: ALBU2.5V8 IH (22:49)
--- NOTE | 2019-08-15 23:29 | EKG ---
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
[2019-08-16 10:21] LABS: THYROID STIM HORMONE (TSH) 9.035 uIU/mL (0.358-3.740)
== END 2019-08-15 23:10 | disposition home or self-care (01) ==
LOC: ER 20:03
DX: B34.9 Viral infection, unspecified (principal); R79.89 Other specified abnormal findings of blood chemistry; F11.10 Opioid abuse, uncomplicated; F15.10 Other stimulant abuse, uncomplicated; I50.9 Heart failure, unspecified; E03.9 Hypothyroidism, unspecified; Z87.442 Personal history of urinary calculi; F17.210 Nicotine dependence, cigarettes, uncomplicated
CPT/HCPCS: 36415; 71045; 80048; 80061; 80076; 80307; 81001; 81025; 82550; 83690; 83735; 83880; 84443; 84484; 85025; 85379; 85610; 85730; 86140; 86705; 86709; 86803; 87070; 87340; 87804; 87880; 93005; 99285; J7120

== ENCOUNTER 2020-12-30 06:47 | Emergency (ER) | payer OTHER ==
[~2020-12-30] VITALS: Ht 182.9 cm; Wt 103.6 kg
[~2020-12-30 06:47] MED LIST changes: +ALBU2.5V8 IH
[2020-12-30] MEDS ORDERED: IV NORMAL SALINE 1,000ML 1,000 ML IV SCH (07:30)
--- NOTE | 2020-12-30 07:34 | PHYS DOC ---
Past History Past Medical History: Anxiety, CHF, Hypothyroid, Kidney Stones Past Surgical History: Appendectomy, Cholecystectomy, Tonsillectomy, Tubal ligation, Other Additional Past Surgical Histo: knee, thyroid Smoking: Cigarettes, Less than 1pk/day Alcohol Use: Occasionally Drug Use: None General Adult EDM: Chief Complaint: ABDOMINAL PAIN HPI: HPI: 35-year-old female past medical history of hypothyroidism, anxiety, nephrolithiasis and taking phentermine for weight loss, presents to the ED with complaints of left lower abdominal pain described as " I feel like I am having contractions" that radiates to both sides of her back, started last night. Took a tramadol at 4:30 AM this morning with no relief, stating "I think it's my kidneys." Is currently on her menses. Reports mild associated nausea stating "I didn't sleep at all last night." Review of Systems: Review of Systems: Constitutional: Denies fever or chills Eyes: Denies change in visual acuity HENT: Denies nasal congestion or sore throat Respiratory: Denies cough or shortness of breath Cardiovascular: Denies chest pain or edema GI: Denies vomiting, bloody stools or diarrhea : Denies increased urinary frequency or urgency Musculoskeletal: Denies midline back pain or joint pain Integument: Denies rash or diaphoresis Neurologic: Denies headache, focal weakness or sensory changes Endocrine: Denies polyuria or polydipsia Lymphatic: Denies swollen glands Psychiatric: Denies depression or anxiety Allergies: Allergies: Allergies Coded Allergies Type Severity Reaction Last Updated Verified No Known Drug Allergies 05/09/18 No Physical Exam: PE: Constitutional: Well developed, well nourished, no acute distress, non-toxic appearance. HENT: Normocephalic, atraumatic, Eyes: EOMI, conjunctiva normal, no discharge. Neck: Normal range of motion, supple, Cardiovascular: S1/2 present, regular rhythm Lungs & Thorax: Speaking in full sentences, bilateral equal chest rise, no tachypnea or increased work of breathing Abdomen: soft, no reproducible tenderness, sits and stands w/o any exacerbation of symptoms, no peritonitis or guarding Skin: Warm, dry, no erythema, no rash. [] Back: No midline tenderness, no CVA tenderness. [] Extremities: No tenderness, no cyanosis, no lower extremity edema Neurologic: Alert and oriented X 3, normal motor function, normal sensory function, no focal deficits noted. [] Psychologic: Affect normal, judgement normal, mood normal. [] Current Patient Data: Labs: Laboratory Tests Test 12/30/20 07:28 POC Urine HCG, Qualitative hcg negative (Negative) EKG: EKG: Sinus rhythm 76 bpm, no axis deviation, QTC 443, Q waves in lead I, aVL, V3 through V6, no ST elevation or ST depression, no active chest pressure, discomfort or pain -no new changes compared to 07/2019 ekg Radiology/Procedures: Radiology/Procedures: []IMAGING REPORT Signed PATIENT: DEYA BARAHONA AACCOUNT: [id number] : 1985 LOCATION: ER AGE: 35 SEX: F EXAM STATUS: REG ER ORD. PHYSICIAN: LEROY JACKMAN DO REASON: abdominal pain PROCEDURE: CT ABD PELV W/ IV CONTRST ONLY Examination: CT of the abdomen pelvis without contrast HISTORY: History of abdominal pain COMPARISON: 02/04/2017 TECHNIQUE: Axial CT images of the abdomen pelvis were performed with IV contrast. Coronal sagittal reformats are performed Exposure: One or more of the following individualized dose reduction techniques were utilized for this examination: 1. Automated exposure control 2. Adjustment of the mA and/or kV according to patient size 3. Use of iterative reconstruction technique FINDINGS: The bibasilar lungs are clear. No evidence of free air identified in the abdomen. The liver, spleen, adrenals grossly appears unremarkable. Cholecystectomy changes. The stomach is mildly distended. The visualized pancreas grossly appears unremarkable. Small bowel is nondilated. Feces and gas noted in the colon. There is punctate 2 mm calculus identified in the right kidney. There is mild inflammatory fat stranding identified about the right kidney with subtle heterogenous enhancement of the right kidney. Urinary bladder is mildly distended Mild degenerative changes thoracolumbar spine. IMPRESSION: 1. Mild inflammatory fat stranding identified about the right kidney with subtle heterogenous enhancement of the right kidney likely pyelonephritis. Correlate with lab values. 2. Punctate 2 mm calculus identified in the right kidney. Electronically signed by: Isaias Still MD (12/30/2020 8:40 AM) [id number] DICTATED AND SIGNED BY: ISAIAS STILL MD DATE: 12/30/20817 CC: MICHAEL NUNEZ APRN; LEROY JACKMAN DO ~MTH0 0 IMAGING REPORT Signed PATIENT: DEYA BARAHONA AACCOUNT: [id number] : 1985 LOCATION: ER AGE: 35 SEX: F EXAM STATUS: REG ER ORD. PHYSICIAN: LEORY JACKMAN DO REASON: abdominal pain PROCEDURE: PORTABLE CHEST 1V EXAM: CHEST 1 VIEW History: Abdominal pain COMPARISON: None available. TECHNIQUE: Single portable radiograph of the chest FINDINGS: The cardiac silhouette is unremarkable. The lungs are clear bilaterally. The costophrenic sulci are clear and well demarcated. IMPRESSION: No radiographic evidence of an acute cardiopulmonary process. Electronically signed by: Isaias Still MD (12/30/2020 8:12 AM) [id number] DICTATED AND SIGNED BY: ISAIAS STILL MD DATE: 12/30/20808 CC: MICHAEL NUNEZ APRN; LEROY JACKMAN DO ~MTH0 0 Heart Score: C/O Chest Pain: No Risk Factors: Risk Factors: DM, Current or recent (<one month) smoker, HTN, HLP, family history of CAD, obesity. Risk Scores: Score 0 - 3: 2.5% MACE over next 6 weeks - Discharge Home Score 4 - 6: 20.3% MACE over next 6 weeks - Admit for Clinical Observation Score 7 - 10: 72.7% MACE over next 6 weeks - Early Invasive Strategies Course & Med Decision Making: Course & Med Decision Making Pertinent Labs and Imaging studies reviewed. (See chart for details) On reevaluation, patient sleeping comfortably, rolls over and gets off the stretcher with no distress. Patient states pain has resolved. Urinalysis does not show any UTI the patient is currently on her menses. CT concerning for possible pyelonephritis on the right side. Will prescribe Keflex for 7 days and Zofran ODT. Will discharge home with strict ED return precautions were given for severe abdominal pain, dehydration or fever. Encouraged urgent outpatient follow-up with PMD for reevaluation. Life-threatening processes were considered but are low suspicion at this time, given history, physical exam and ED workup. Pt was educated on all prescription medications and adverse effects. All patient's questions were answered and pt was stable at time of discharge. Life/limb-threatening differential includes but is not limited to, aortic dissection, aortic aneurysm, acute coronary syndrome, surgical abdomen (appendicitis, cholecystitis, ischemic bowel, strangulated hernia, etc), bowel obstruction or volvulus, bladder outlet obstruction, gastrointestinal bleeding, inflammatory bowel disease, peptic ulcer disease, ACS/CAD, sepsis, diverticular disease, ureterolithiasis, nephrolithiasis, ovarian or testicular torsion, ectopic , vaginal hemorrhage, or genitourinary infection. I have spoken with the patient and/or caregivers. I explained the patient's condition, diagnoses and treatment plan based on the information available to me at this time. I have answered the patient and/or caregiver's questions and addressed any concerns. The patient and/or caregivers have a good understanding of patient's diagnosis, condition and treatment plan as can be expected at this point. Vital signs have been stable. Patient's condition is stable and appropriate for discharge from the emergency department. Patient will pursue further outpatient evaluation with primary care physician or other designated or consulting physician as outlined in the discharge instructions. The patient and/or caregivers are agreeable to this plan of care and follow-up instructions have been explained in detail. The patient and/or caregivers have received these instructions in written form and have expressed an understanding of the discharge instructions. The patient and/or caregivers are aware that any significant change of condition or worsening of symptoms should prompt immediate return to this or the closest emergency department or call to 911Morena Dominguez Disclaimer: Angelica Disclaimer: This electronic medical record was generated, in whole or in part, using a voice recognition dictation system. Departure Departure: Impression: Primary Impression: Abdominal pain Additional Impression: Nausea Disposition: 01 HOME / SELF CARE / HOMELESS Condition: STABLE Referrals: MICHAEL NUNEZ APRN (PCP) Follow up with your pcp in 1-2 days or [facility] [phone] OR [facility]-Dr. Nino [phone] Patient Instructions: Abdominal Pain, Nausea, Adult Additional Instructions: EMERGENCY DEPARTMENT GENERAL DISCHARGE INSTRUCTIONS Thank you for coming to [facility] (ED) today and trusting us with you care. We trust that you had a positivie experience in our Emergency Department. If you wish to speak to the department management, you may call the director at [phone]. YOUR FOLLOW UP INSTRUCTIONS ARE FOLLOWS: 1. Do you have a private Doctor? If you do not have a private doctor, please ask for a resource list of physicians or clinics that may be able to assist you with follow up care. 2. The Emergency Physician has interpreted your x-rays. The X-Ray specialist will also review them. If there is a change in the findings, you will be notified in 48 hours when at all possible. 3. A lab test or culture has been done, your results will be reviewed and you will be notified if you need a change in treatment. ADDITIONAL INSTRUCTIONS AND INFORMATION: 1. Your care today has been supervised by a physician who is specially trained in emergency care. Many problems require more than one evaluation for a complete diagnosis and treatment. We recommend that you schedule your follow up appointment as recommended to ensure complete treatment of you illness or injury. If you are unable to obtain follow up care and continue to have a problem, or if your condition worsens, we recommend that you return to the ED. 2. We are not able to safely determine your condition over the phone nor are we able to give sound medical advice over the phone. For these safety reasons, if you call for medical advice we will ask you to come to the ED for further evaluation. 3. If you have any questions regarding these discharge instructions please call the ED at [phone]. SAFETY INFORMATION: In the interest of safety, wellness, and injury prevention; we encourage you to wear your sealbelt, if you smoke; quite smoking, and we encourage family to use a protective helmet for bicycling and other sporting events that present an increased risk for head injury. IF YOUR SYMPTOMS WORSEN OR NEW SYMPTOMS DEVELOP, OR YOU HAVE CONCERNS ABOUT YOUR CONDITION; OR IF YOUR CONDITION WORSENS WHILE YOU ARE WAITING FOR YOUR FOLLOW UP APPOINTMENT; EITHER CONTACT YOUR PRIMARY CARE DOCTOR, THE PHYSICIAN WHOSE NAME AND NUMBER YOU WERE GIVEN, OR RETURN TO THE ED IMMEDIATELY. Scripts Ondansetron (ONDANSETRON ODT) 4 Mg Tab.rapdis 4 MG PO Q6HRS for Nausea/Vomiting, #15 TAB Prov: LEROY JACKMAN DO 12/30/20 Cephalexin (KEFLEX) 500 Mg Capsule 1 CAP PO QID for uti for 7 Days, #28 CAP Prov: LEROY JACKMAN DO 12/30/20 LEROY JACKMAN DO Dec 30, 2020 07:34
[2020-12-30] MEDS ORDERED: IOHEXOL 300 MG/ML 75 ML VIAL. IV ONE (07:45)
--- NOTE | 2020-12-30 07:58 | EKG ---
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
[2020-12-30 08:02] LABS: BACTERIA,URINE 0 /HPF (0-FEW); BILIRUBIN,URINE NEG (NEG); CLARITY,URINE CLEAR; COLOR,URINE YELLOW; GLUCOSE,URINE NEG (NEG); NITRITE,URINE NEG (NEG); SQUAMOUS EPITHELIAL CELL,UR FEW /LPF; UROBILINOGEN,URINE 0.2 mg/dL (0.2 mg/dL)
--- NOTE | 2020-12-30 08:15 | RAD ---
EXAM: CHEST 1 VIEW History: Abdominal pain COMPARISON: None available. TECHNIQUE: Single portable radiograph of the chest FINDINGS: The cardiac silhouette is unremarkable. The lungs are clear bilaterally. The costophrenic sulci are clear and well demarcated. IMPRESSION: No radiographic evidence of an acute cardiopulmonary process. Electronically signed by: Isaias Still MD (12/30/2020 8:12 AM) [id number]
[2020-12-30 08:22] LABS: BASO # 0.1 x10^3/uL (0.0-0.2); BASO % 1 % (0-3); EOS # 0.2 x10^3/uL (0.0-0.7); EOS % 2 % (0-3); HEMATOCRIT 39.9 % (36.0-47.0); HEMOGLOBIN 13.6 g/dL (12.0-15.5); LYMPH # 2.5 x10^3/uL (1.0-4.8); LYMPH % 22 % (24-48); MEAN CORPUSCULAR HEMOGLOBIN 33 pg (25-35); MEAN CORPUSCULAR HGB CONC 34 g/dL (31-37); MEAN CORPUSCULAR VOLUME 97 fL (79-100); MONO # 1.1 x10^3/uL (0.0-1.1); MONO % 10 % (0-9); NEUT # 7.3 x10^3uL (1.8-7.7); NEUT % 65 % (31-73); PLATELET COUNT 312 x10^3/uL (140-400); RED BLOOD COUNT 4.11 x10^6/uL (3.50-5.40); RED CELL DISTRIBUTION WIDTH 12.8 % (11.5-14.5); WHITE BLOOD COUNT 11.2 x10^3/uL (4.0-11.0)
[2020-12-30 08:32] LABS: CREATININE 0.9 mg/dL (0.6-1.0); GFR 71.7; POTASSIUM 4.3 mmol/L (3.5-5.1)
--- NOTE | 2020-12-30 08:43 | RAD ---
Examination: CT of the abdomen pelvis without contrast HISTORY: History of abdominal pain COMPARISON: 02/04/2017 TECHNIQUE: Axial CT images of the abdomen pelvis were performed with IV contrast. Coronal sagittal re formats are performed Exposure: One or more of the following individualized dose reduction techniques were utilized for thi s examination: 1. Automated exposure control 2. Adjustment of the mA and/or kV according to patient size 3. Use of iterative reconstruction technique FINDINGS: The bibasilar lungs are clear. No evidence of free air identified in the abdomen. The liver, spleen, adrenals grossly appears unremarkable. Cholecystectomy changes. The stomach is mildly distended. The visualized pancreas grossly appears unremarkable. Small bowel is nondilated. Feces and gas noted in t he colon. There is punctate 2 mm calculus identified in the right kidney. There is mild inflammatory fat strand ing identified about the right kidney with subtle heterogenous enhancement of the right kidney. Urinary bladder is mildly distended Mild degenerative changes thoracolumbar spine. IMPRESSION: 1. Mild inflammatory fat stranding identified about the right kidney with subtle heterogenous enhanc ement of the right kidney likely pyelonephritis. Correlate with lab values. 2. Punctate 2 mm calculus identified in the right kidney. Electronically signed by: Isaias Still MD (12/30/2020 8:40 AM) [id number]
[2020-12-30] MEDS ORDERED: ONDANSETRON PF 4 MG/2 ML VIAL. IVP ONE (08:45)
[2020-12-30] MEDS ORDERED: HYDROmorphone PF 1 MG/ML DISP.SYRIN IVP ONE (08:45)
[2020-12-30 08:46] LABS: ALBUMIN 3.8 g/dL (3.4-5.0); ALBUMIN/GLOBULIN RATIO 1.3 (1.0-1.7); TOTAL BILIRUBIN 0.4 mg/dL (0.2-1.0); TOTAL PROTEIN 6.7 g/dL (6.4-8.2)
[2020-12-30 09:30] LABS: AMPHETAMINE/METHAMPHETAMINE POS (NEG); BARBITURATES NEG (NEG); BENZODIAZEPINES NEG (NEG); CANNABINOIDS NEG (NEG); COCAINE NEG (NEG); METHADONE NEG (NEG); OPIATES NEG (NEG); PHENCYCLIDINE NEG (NEG)
[2020-12-30 09:54] VITALS: BP 118/63
[2020-12-30] MEDS ORDERED: ONDA4TAB12 PO (09:56)
[2020-12-30] MEDS ORDERED: CEPH500C PO (09:56)
== END 2020-12-30 10:10 | disposition home or self-care (01) ==
LOC: ER 06:47
DX: R10.32 Left lower quadrant pain (principal); R11.0 Nausea; F41.9 Anxiety disorder, unspecified; I50.9 Heart failure, unspecified; E03.9 Hypothyroidism, unspecified; F17.210 Nicotine dependence, cigarettes, uncomplicated; Z87.442 Personal history of urinary calculi; Z90.49 Acquired absence of other specified parts of digestive tract; Z90.89 Acquired absence of other organs; Z98.51 Tubal ligation status
CPT/HCPCS: 36415; 71045; 74177; 80053; 80307; 81001; 81025; 82550; 83690; 84484; 85025; 93005; 96361; 96374; 96375; 99285; J1170; J2405; J7030; Q9967

== ENCOUNTER 2021-04-08 19:54 | Emergency (ER) | payer OTHER ==
[~2021-04-08] VITALS: Ht 182.9 cm; Wt 103.6 kg
[~2021-04-08 19:54] MED LIST changes: +CEPH500C PO; -CYCL-331 PO; +CYCL10TA19 PO; +ONDA4TAB12 PO
--- NOTE | 2021-04-08 20:09 | PHYS DOC ---
Past History Past Medical History: Anxiety, CHF, Hypothyroid, Kidney Stones Past Surgical History: Appendectomy, Cholecystectomy, Tonsillectomy, Tubal ligation, Other Additional Past Surgical Histo: knee, thyroid Smoking: Cigarettes, Less than 1pk/day Alcohol Use: Occasionally Drug Use: None General Adult EDM: Chief Complaint: ANKLE PROBLEM HPI: HPI: ".. I slipped on the ice.. and fell.. the other day.. and my Rt. foot still hurts.. and my Lt knee still hurts..." Patient is a 35 year old female who presents with above hx and complaints of slip and fall on ice 3 days ago. Since that time has continued to have tenderness and right foot particularly lateral side of foot. Patient also complaining of left knee injury with contusion. Patient denies any upper leg injury from either injury. Patient localizes pain and right foot and this is exacerbated by loading of fifth toe. There is some swelling. Patient states sh e has had a previous injury at this site. Patient also complaining of pain with range of motion of left knee. Is able to do straight leg lift. Does have a contusion on knee. Overall ligament seem grossly stable. Has been able to bear weight and walk. Distal neurovascular intact. Distal neurovascular intact in right foot. No other injury of fall. Patient normally stable health. Follows with nurse practitioner Deepa. Review of Systems: Review of Systems: Constitutional: Denies fever or chills Eyes: Denies change in visual acuity HENT: Denies nasal congestion or sore throat Respiratory: Denies cough or shortness of breath Cardiovascular: Denies chest pain or edema GI: Denies abdominal pain, nausea, vomiting, bloody stools or diarrhea : Denies dysuria Musculoskeletal: Complains of right foot pain and left knee pain Integument: Denies rash Neurologic: Denies headache, focal weakness or sensory changes Endocrine: Denies polyuria or polydipsia Lymphatic: Denies swollen glands Psychiatric: Denies depression or anxiety Family History: Family History: Noncontributory to presentation Current Medications: Current Meds: This see nursing for home meds Allergies: Allergies: Allergies Coded Allergies Type Severity Reaction Last Updated Verified No Known Drug Allergies 05/09/18 No Physical Exam: PE: Constitutional: Moderate acute distress, non-toxic appearance. [] HENT: Normocephalic, atraumatic, bilateral external ears normal, oropharynx moist, no oral exudates, nose normal. [] Eyes: PERRLA, EOMI, conjunctiva normal, no discharge. [] Neck: Normal range of motion, no tenderness, supple, no stridor. [] Cardiovascular:Heart rate regular rhythm, no murmur [] Lungs & Thorax: Bilateral breath sounds at apex on auscultation [] Abdomen: Bowel sounds normal, soft, no tenderness, no masses, no pulsatile masses. Obese. Old surgery scars. Skin: Warm, dry, no erythema, no rash. [] Back: No tenderness, no CVA tenderness. [] Extremities: No tenderness, no cyanosis, no clubbing, ROM intact, no edema. Rt foot and Lt knee as per HPI Neurologic: Alert and oriented X 3, normal motor function, normal sensory function, no focal deficits noted. [] Psychologic: Affect normal, judgement normal, mood normal. [] EKG: EKG: [] Radiology/Procedures: Radiology/Procedures: [][address] [place] [address] IMAGING REPORT Signed PATIENT: DEYA BARAHONA AACCOUNT: [id number] : 1985 LOCATION: ER AGE: 35 SEX: F EXAM STATUS: REG ER ORD. PHYSICIAN: SHAYE BO MD REASON: Fall, right foot and left knee injury with pain PROCEDURE: KNEE LEFT 4V EXAM: XR KNEE _4 VIEWS WITH PATELLA_LT, XR FOOT_RIGHT 3 VIEWS 04/08/2021 8:28 PM CLINICAL INDICATION: Fall, right foot and left knee injury with pain COMPARISON: Right foot radiograph 08/31/2018 TECHNIQUE: 3 views of the right foot. 4 views of the left knee FINDINGS: Right foot: No acute fracture. Mild widening of the Lisfranc interval, unchanged. Joint spaces are maintained. No soft tissue abnormality. Left knee: No acute fracture. Alignment is normal. Mild medial and lateral compartment narrowing with small osteophytes. Small joint effusion. IMPRESSION: 1. No acute osseous abnormality of the right foot or left knee. 2. Possible mild widening of the right Lisfranc interval, unchanged from 019. Correlate for chronic Lisfranc injury. 3. Mild degenerative joint disease of the left knee. Electronically signed by: Nicole Purcell MD (04/08/2021 9:58 PM) [id number] DICTATED AND SIGNED BY: NICOLE PURCELL MD DATE: 04/08/212154 CC: SHAYE BO MD; MICHAEL NUNEZ APRN ~MTH0 0 Signed By: VICTORINA GHOTRA APRN <<Signature on File>> Signed Date/Time:04/05/212052 cc: VICTORINA GHOTRA APRN; SHAYE BO MD; Heart Score: C/O Chest Pain: N/A Risk Factors: Risk Factors: DM, Current or recent (<one month) smoker, HTN, HLP, family history of CAD, obesity. Risk Scores: Score 0 - 3: 2.5% MACE over next 6 weeks - Discharge Home Score 4 - 6: 20.3% MACE over next 6 weeks - Admit for Clinical Observation Score 7 - 10: 72.7% MACE over next 6 weeks - Early Invasive Strategies Course & Med Decision Making: Course & Med Decision Making Pertinent Labs and Imaging studies reviewed. (See chart for details) Ice, joy wraps, elevation, rest and take tylenol and ibuprofen for pain. Follow with with [facility] orthro. [phone]. Impression: 1. Sprain / Strain 2. Contusion Lt. knee 3. Lisfranc injury Rt. foot. [] Dragon Disclaimer: Dragon Disclaimer: This electronic medical record was generated, in whole or in part, using a voice recognition dictation system. Departure Departure: Referrals: MICHAEL NUNEZ APRN (PCP) Dragjonathon Disclaimer This chart was dictated in whole or in part using Voice Recognition software in a busy, high-work load, and often noisy Emergency Department environment. It may contain unintended and wholly unrecognized errors or omissions. Dragon Disclaimer This chart was dictated in whole or in part using Voice Recognition software in a busy, high-work load, and often noisy Emergency Department environment. It may contain unintended and wholly unrecognized errors or omissions. SHAYE BO MD Apr 08, 2021 20:09
[2021-04-08] MEDS ORDERED: ACETAMINOPHEN 500 MG TABLET PO ONE (20:30)
[2021-04-08 20:48] LABS: BARBITURATES NEG (NEG); BENZODIAZEPINES POS (NEG); CANNABINOIDS NEG (NEG); COCAINE NEG (NEG); METHADONE NEG (NEG); OPIATES POS (NEG); PHENCYCLIDINE NEG (NEG)
[2021-04-08 20:51] LABS: AMPHETAMINE/METHAMPHETAMINE POS (NEG)
--- NOTE | 2021-04-08 22:00 | RAD ---
EXAM: XR KNEE _4 VIEWS WITH PATELLA_LT, XR FOOT_RIGHT 3 VIEWS 04/08/2021 8:28 PM CLINICAL INDICATION: Fall, right foot and left knee injury with pain COMPARISON: Right foot radiograph 08/31/2018 TECHNIQUE: 3 views of the right foot. 4 views of the left knee FINDINGS: Right foot: No acute fracture. Mild widening of the Lisfranc interval, unchanged. Joint spaces are ma intained. No soft tissue abnormality. Left knee: No acute fracture. Alignment is normal. Mild medial and lateral compartment narrowing with small osteophytes. Small joint effusion. IMPRESSION: 1. No acute osseous abnormality of the right foot or left knee. 2. Possible mild widening of the right Lisfranc interval, unchanged from 08/31/2018. Correlate for chr onic Lisfranc injury. 3. Mild degenerative joint disease of the left knee. Electronically signed by: Nicole Purcell MD (04/08/2021 9:58 PM) [id number]
[2021-04-08 22:45] VITALS: BP 140/88
== END 2021-04-08 22:45 | disposition home or self-care (01) ==
LOC: ER 19:54
DX: S80.02XA Contusion of left knee, initial encounter (principal); S99.921A Unspecified injury of right foot, initial encounter; F41.9 Anxiety disorder, unspecified; I50.9 Heart failure, unspecified; E03.9 Hypothyroidism, unspecified; F17.210 Nicotine dependence, cigarettes, uncomplicated; Z87.442 Personal history of urinary calculi; W00.0XXA Fall on same level due to ice and snow, initial encounter; Y93.89 Activity, other specified; Y92.89 Other specified places as the place of occurrence of the external cause; Y99.8 Other external cause status
CPT/HCPCS: 36415; 73564; 73630; 80307; 81025; 99284

== ENCOUNTER 2021-08-05 18:00 | Emergency (ER) | payer OTHER ==
[~2021-08-05] VITALS: Ht 182.9 cm; Wt 103.6 kg
--- NOTE | 2021-08-05 19:16 | PHYS DOC ---
Past History Past Medical History: Anxiety, CHF, Hypothyroid, Kidney Stones Additional Past Medical Histor: CHRONIC BACK PAIN (BEN FITZGERALD APRN) Past Surgical History: Appendectomy, Cholecystectomy, Tonsillectomy, Tubal ligation, Other Additional Past Surgical Histo: knee, thyroid (BEN FITZGERALD APRN) Smoking: Cigarettes, Less than 1pk/day Alcohol Use: Occasionally Drug Use: None (BEN FITZGERALD APRN) General Adult EDM: Chief Complaint: MECHANICAL FALL HPI: HPI: Patient is a 36-year-old female presents with right ankle pain after tripping over a shoe. Patient was able to bear weight but produces pain. Pedal pulses are intact. Denies taking anything prior to arrival. Patient's rating pain 8/10. (BEN FITZGERALD APRN) Review of Systems: Review of Systems: ROS At least 10 ROS systems have been reviewed and are negative except as documented in the HPI. General: Negative except as outlined in HPI above. Skin: Negative except as outlined in HPI above. HEENT: Negative except as outlined in HPI above. Neck: Negative except as outlined in HPI above. Respiratory: Negative except as outlined in HPI above.. Cardiovascular: Negative except as outlined in HPI above. Abdomen: Negative except as outlined in HPI above. : Negative except as outlined in HPI above. Back/MSK: Negative except as outlined in HPI above. Neuro: Negative except as outlined in HPI above. Psych: Negative except as outlined in HPI above. (BEN FITZGERALD APRN) Allergies: Allergies: Allergies Coded Allergies Type Severity Reaction Last Updated Verified No Known Drug Allergies 05/09/18 No (BEN FITZGERALD APRN) Physical Exam: PE: Constitutional: Well developed, well nourished, no acute distress, non-toxic appearance. [] HENT: Normocephalic, atraumatic, bilateral external ears normal, oropharynx moist, no oral exudates, nose normal. [] Eyes: PERRLA, EOMI, conjunctiva normal, no discharge. [] Neck: Normal range of motion, no tenderness, supple, no stridor. [] Cardiovascular:Heart rate regular rhythm, no murmur [] Lungs & Thorax: Bilateral breath sounds clear to auscultation [] Abdomen: Bowel sounds normal, soft, no tenderness, no masses, no pulsatile masses. [] Skin: Warm, dry, no erythema, no rash. [] Back: No tenderness, no CVA tenderness. [] Extremities: Right ankle tenderness, ROM intact, no edema. [] Neurologic: Alert and oriented X 3, normal motor function, normal sensory function, no focal deficits noted. [] Psychologic: Affect normal, judgement normal, mood normal. [] (BEN FITZGERALD APRN) Current Patient Data: Vital Signs: Vital Signs Date Time Temp Pulse Resp B/P (MAP) Pulse Ox O2 Delivery O2 Flow Rate FiO2 08/05/21 18:00 70 16 151/96 (114) 100 Room Air (BEN FITZGERALD APRN) EKG: EKG: [] (BEN FITZGERALD APRN) Radiology/Procedures: Radiology/Procedures: []EXAM: Right ankle 3 views. HISTORY: Pain after injury. COMPARISON: None. FINDINGS: Three views of the right ankle are obtained. No acute fractures are identified. Changes of a chronic ligamentous avulsion are noted at the tip of the lateral malleolus. A normal variant accessory ossicle is noted adjacent to the calcaneal anterior process. Alignment is normal. Joint spaces are maintained. IMPRESSION: 1. No fracture. Electronically signed by: Jordan Degroot MD (08/05/2021 8:07 PM) [facility] (BEN FITZGERALD APRN) Heart Score: C/O Chest Pain: No Risk Factors: Risk Factors: DM, Current or recent (<one month) smoker, HTN, HLP, family history of CAD, obesity. Risk Scores: Score 0 - 3: 2.5% MACE over next 6 weeks - Discharge Home Score 4 - 6: 20.3% MACE over next 6 weeks - Admit for Clinical Observation Score 7 - 10: 72.7% MACE over next 6 weeks - Early Invasive Strategies (BEN FITZGERALD APRN) Course & Med Decision Making: Course & Med Decision Making Pertinent Labs and Imaging studies reviewed. (See chart for details) [] 36-year-old female presents with ankle pain after tripping over her child's shoe. Patient is complaining of right ankle pain. Pedal pulses intact. Sensation is intact. Patient was able to bear weight. X-ray ordered to rule out fracture.Patient given hydrocodone for discomfort. X-ray is unremarkable. No fracture or acute abnormality. Educated on [place]. Advised patient to follow-up in 5 to 7 days if symptoms have not improved. May need repeat imaging. Patient appreciative and okay with plan. (BEN FITZGREALD APRN) Angelica Disclaimer: Angelica Disclaimer: This electronic medical record was generated, in whole or in part, using a voice recognition dictation system. (BEN FITZGERALD APRN) Departure Departure: Impression: Primary Impression: Ankle pain, right Qualified Codes: M25.571 - Pain in right ankle and joints of right foot Disposition: HOME / SELF CARE / HOMELESS Condition: STABLE Referrals: MICHAEL NUNEZ APRN (PCP) Patient Instructions: RICE - Routine Care for Injuries, [id number] Additional Instructions: You are seen in the emergency room for right ankle pain. X-rays were unremarkable and did not show any fracture. Rest, use ice, elevate to help with pain. Use ibuprofen at home for pain if pain still continues after 5 to 7 days please follow-up with your PCP, you may need repeat imaging. Return to emergency with worsening symptoms or concerns. EMERGENCY DEPARTMENT GENERAL DISCHARGE INSTRUCTIONS Thank you for coming to [facility] (ED) today and trusting us with you care. We trust that you had a positivie experience in our Emergency Department. If you wish to speak to the department management, you may call the director at [phone]. YOUR FOLLOW UP INSTRUCTIONS ARE FOLLOWS: 1. Do you have a private Doctor? If you do not have a private doctor, please ask for a resource list of physicians or clinics that may be able to assist you with follow up care. 2. The Emergency Physician has interpreted your x-rays. The X-Ray specialist will also review them. If there is a change in the findings, you will be notified in 48 hours when at all possible. 3. A lab test or culture has been done, your results will be reviewed and you will be notified if you need a change in treatment. ADDITIONAL INSTRUCTIONS AND INFORMATION: 1. Your care today has been supervised by a physician who is specially trained in emergency care. Many problems require more than one evaluation for a complete diagnosis and treatment. We recommend that you schedule your follow up appointment as recommended to ensure complete treatment of you illness or injury. If you are unable to obtain follow up care and continue to have a problem, or if your condition worsens, we recommend that you return to the ED. 2. We are not able to safely determine your condition over the phone nor are we able to give sound medical advice over the phone. For these safety reasons, if you call for medical advice we will ask you to come to the ED for further evaluation. 3. If you have any questions regarding these discharge instructions please call the ED at [phone]. SAFETY INFORMATION: In the interest of safety, wellness, and injury prevention; we encourage you to wear your sealbelt, if you smoke; quite smoking, and we encourage family to use a protective helmet for bicycling and other sporting events that present an increased risk for head injury. IF YOUR SYMPTOMS WORSEN OR NEW SYMPTOMS DEVELOP, OR YOU HAVE CONCERNS ABOUT YOUR CONDITION; OR IF YOUR CONDITION WORSENS WHILE YOU ARE WAITING FOR YOUR FOLLOW UP APPOINTMENT; EITHER CONTACT YOUR PRIMARY CARE DOCTOR, THE PHYSICIAN WHOSE NAME AND NUMBER YOU WERE GIVEN, OR RETURN TO THE ED IMMEDIATELY. Dragon Disclaimer This chart was dictated in whole or in part using Voice Recognition software in a busy, high-work load, and often noisy Emergency Department environment. It may contain unintended and wholly unrecognized errors or omissions. (SHAYE BO MD) Dragon Disclaimer This chart was dictated in whole or in part using Voice Recognition software in a busy, high-work load, and often noisy Emergency Department environment. It may contain unintended and wholly unrecognized errors or omissions. (SHAYE BO MD) Attending Signature Attending Signature I have participated in the care of this patient and I have reviewed and agree with all pertinent clinical information above including history, exam, and recommendations. (SHAYE BO MD) BEN FITZGERALD APRN August 05, 2021 19:16 SHAYE BO MD August 08, 2021 17:41
[2021-08-05] MEDS ORDERED: HYDROcodone/APAP 5/325MG 1 TAB TABLET PO ONE (20:00)
--- NOTE | 2021-08-05 20:10 | RAD ---
EXAM: Right ankle 3 views. HISTORY: Pain after injury. COMPARISON: None. FINDINGS: Three views of the right ankle are obtained. No acute fractures are identified. Changes of a chronic ligamentous avulsion are noted at the tip of the lateral malleolus. A normal variant accessory ossicle is noted adjacent to the calcaneal anterior process. Alignment is normal. Joint spaces are maintained. IMPRESSION: 1. No fracture. Electronically signed by: Jordan Degroot MD (08/05/2021 8:07 PM) [facility]
[2021-08-05 21:10] VITALS: BP 143/89
== END 2021-08-05 21:10 | disposition home or self-care (01) ==
LOC: ER 18:00
DX: M25.571 Pain in right ankle and joints of right foot (principal); F41.9 Anxiety disorder, unspecified; E03.9 Hypothyroidism, unspecified; I50.9 Heart failure, unspecified; F17.210 Nicotine dependence, cigarettes, uncomplicated; G89.29 Other chronic pain; Z87.442 Personal history of urinary calculi
CPT/HCPCS: 73610; 99283